=== PATIENT | female | born 1950 | race American Indian/Alaskan Native ===

== ENCOUNTER 2018-07-10 19:47 | Emergency (ER) | payer BC ==
[2018-07-10] MEDS ORDERED: Labetalol 25mg/5ml Syringe IVP STA (20:14)
--- NOTE | 2018-07-10 20:24 | C.PDOC ---
History Of Present Illness 68 y/o female, with history of hypertension, states that she did not take her medications today. Patient was here at the hospital visiting family when she started to have head pressure and dizziness. Blood pressure was found to be e levated. She denies chest pain or SOB. Patient states that shes been under a lot of stress as of late. Time Seen by Provider: 07/10/18 20:03 Chief Complaint (Nursing): High Blood Pressure History Per: Patient History/Exam Limitations: no limitations Onset/Duration Of Symptoms: Hrs Current Symptoms Are (Timing): Still Present Past Medical History Reviewed: Historical Data, Nursing Documentation, Vital Signs Vital Signs: Last Vital Signs Temp 98.5 F 07/10/18 19:57 Pulse 67 07/10/18 19:57 Resp 20 07/10/18 19:57 BP 227/116 H 07/10/18 19:57 Pulse Ox 95 07/10/18 19:57 - Medical History PMH: HTN - [facility] Procedures ESOPHAGOGASTRODUODENOSCOPY [EGD] W/CLOSED BIOPSY (06/20/98) Family History: States: No Known Family Hx - Social History Hx Alcohol Use: No Hx Substance Use: No - Immunization History Hx Tetanus Toxoid Vaccination: Yes Hx Influenza Vaccination: Yes Hx Pneumococcal Vaccination: Yes Review Of Systems Except As Marked, All Systems Reviewed And Found Negative. Neurological: Positive for: Dizziness, Other (Head pressure) Physical Exam - Physical Exam Appears: Non-toxic, No Acute Distress Skin: Normal Color, Warm, Dry Head: Atraumatic, Normacephalic Eye(s): bilateral: Normal Inspection, PERRL Oral Mucosa: Moist Neck: Supple Chest: Symmetrical Cardiovascular: Rhythm Regular, No Murmur Respiratory: Normal Breath Sounds, No Rales, No Rhonchi, No Wheezing Gastrointestinal/Abdominal: Soft, No Tenderness Extremity: Bilateral: Atraumatic, Normal Color And Temperature, Normal ROM Neurological/Psych: Oriented x3, Normal Speech ED Course And Treatment - Laboratory Results Result Diagrams: 07/10/18 20:39 07/10/18 20:39 ECG: Interpreted By Me, Viewed By Me ECG Rhythm: Sinus Bradycardia Interpretation Of ECG: Normal intervals. Normal axis. LVH. No ST/T wave abnormalities. Rate From EC O2 Sat by Pulse Oximetry: 95 (RA) Pulse Ox Interpretation: Normal - CT Scan/US Head CT Other Rad Studies (CT/US): Read By Radiologist, Radiology Report Reviewed CT/US Interpretation: FINDINGS: BRAIN. Chronic periventricular and subcortical microvascular disease is seen. VENTRICLES: There is generalized parenchymal atrophy noted as demonstrated by symmetrical dilatation of ventricles and sulci. ORBITS: The orbits are unremarkable. SINUSES AND MASTOIDS: The paranasal sinuses and mastoid air cells are clear. BONES: No fracture. SOFT TISSUES: Unremarkable. MISCELLANEOUS: No acute intracranial pathology. IMPRESSION: 1. There is generalized parenchymal atrophy noted as demonstrated by symmetrical dilatation of ventricles and sulci. 2. Chronic periventricular and subcortical microvascular disease is seen. 3. No acute intracranial pathology. Medical Decision Making Medical Decision Making: Impression: High Blood Pressure Plan: --Head CT --EKG --Labs --Chest XR --Trandate 20 mg IV patient states improvement. repeat bp lowered. Patient would like to go home. Will discharge home to follow up accordingly. Disposition Counseled Patient/Family Regarding: Studies Performed, Diagnosis, Need For Followup - Disposition Referrals: Mehran Larson MD [Staff Provider] - Disposition: HOME/ ROUTINE Disposition Time: 22:43 Condition: STABLE Additional Instructions: follow up with your doctor within 2 days call to make an appointment continue your home medications return to ER if symptoms worsens or progress Instructions: High Blood Pressure in Adults Forms: [facility] (German), General Discharge Instructions - Clinical Impression Clinical Impression: Hypertension - Scribe Statement The provider has reviewed the documentation as recorded by the Gary Gutierrez Provider Attestation: All medical record entries made by the Mpibcori were at my direction and personally dictated by me. I have reviewed the chart and agree that the record accurately reflects my personal performance of the history, physical exam, [facility] decision making, and the department course for this patient. I have also personally directed, reviewed, and agree with the discharge instructions and disposition.
[2018-07-10] MEDS ORDERED: Labetalol 5mg/ml (4ml) ONE ×3 (20:27→23:14)
[2018-07-10 20:42] LABS: BASO # 0.1 K/uL (0.0-0.2); BASO % 1.4 % (0.0-2.0); EOS # 0.1 K/uL (0.0-0.7); EOS % 1.2 % (0.0-4.0); HEMOGLOBIN 11.6 g/dL (11.0-16.0); LYMPH # 1.4 K/uL (1.0-4.3); MEAN CELL VOLUME 89.1 fL (81.0-99.0); MEAN CORPUSCULAR HEMOGLOBIN 29.1 pg (27.0-31.0); MEAN CORPUSCULAR HGB CONC 32.7 g/dL (33.0-37.0); MEAN PLATELET VOLUME 11.6 fL (7.2-11.7); MONO # 0.7 K/uL (0.0-0.8); MONO % 13.4 % (0.0-10.0); NEUT # 3.2 K/uL (1.8-7.0); RBC 3.99 Mil/uL (3.80-5.20); RED CELL DISTRIBUTION WIDTH 14.3 % (11.5-14.5); WHITE BLOOD COUNT 5.4 K/uL (4.8-10.8)
[2018-07-10 20:55] LABS: ALB/GLOB RATIO 1.2 (1.0-2.1); ALBUMIN 4.5 g/dL (3.5-5.0); BLOOD UREA NITROGEN 33 mg/dL (7-17); CALCIUM 9.4 mg/dl (8.6-10.4); GFR NON-AFRICAN AMERICAN 28
[2018-07-10 21:06] LABS: ALT/SGPT 28 U/L (9-52); AST/SGOT 40 U/L (14-36)
[2018-07-10 21:07] LABS: B-TYPE NATRIURETIC PEPTIDE 531 pg/mL (0-900)
[2018-07-10] MEDS ORDERED: Labetalol 5 mg/ml Inj 20ML IV STA ×2 (21:36→22:37)
[2018-07-10 23:31] VITALS: O2SAT 100
[2018-07-10 23:56] VITALS: BP 165/94; PULSE 74; RESP 20; TEMP 98.1
--- NOTE | 2018-07-11 07:32 | CT ---
Date of service: 07/10/2018 PROCEDURE: CT HEAD WITHOUT CONTRAST. HISTORY: dizziness COMPARISON: None available. TECHNIQUE: Axial computed tomography images were obtained through the head/brain without intravenous contrast. Radiation dose: Total exam DLP = 1077.66 mGy-cm. This CT exam was performed using one or more of the following dose reduction techniques: Automated exposure control, adjustment of the mA and/or kV according to patient size, and/or use of iterative reconstruction technique. FINDINGS: HEMORRHAGE: No intracranial hemorrhage. BRAIN: No mass effect or edema. Scattered focal lucencies in the subcortical and periventricular white matter suggestive for severe chronic microvascular ischemic change. Generalized parenchymal atrophy. VENTRICLES: Unremarkable. No hydrocephalus. CALVARIUM: Unremarkable. PARANASAL SINUSES: Unremarkable as visualized. No significant inflammatory changes. MASTOID AIR CELLS: Unremarkable as visualized. No inflammatory changes. OTHER FINDINGS: None. IMPRESSION: Generalized parenchymal atrophy. Severe chronic microvascular ischemic change. If symptoms persists, consider correlation with MRI. A preliminary report was generated at 9:06 p.m. on 07/10/[address] Vikram Burleson from [employer].
--- NOTE | 2018-07-11 08:14 | RAD ---
Chest x-ray single frontal view HISTORY: Shortness of breath. COMPARISON: None. FINDINGS: No focal infiltrate or effusion. Heart size within normal limits. Calcific tendinopathy of the left proximal humerus. IMPRESSION: No focal infiltrate or effusion.
--- NOTE | 2018-07-12 20:07 | CARD ---
APPROVED REPORT Date of service: 07/10/2018 EKG Measurement Heart [id number] [id number] <Conclusion> Sinus bradycardia with sinus arrhythmia Possible Left atrial enlargement Left ventricular hypertrophy Abnormal ECG
== END 2018-07-11 00:26 | disposition home or self-care (01) ==
LOC: C.ER 19:47
DX: I10 Essential (primary) hypertension (principal)

== ENCOUNTER 2018-08-25 21:18 | Inpatient (IN) | payer BC ==
[2018-08-25 21:37] VITALS: BMI 30.2
--- NOTE | 2018-08-25 21:40 | C.PDOC ---
History Of Present Illness 68 year old female presents with loss of vision of the left eye, medial aspect, since yesterday. Denies headache, nausea, or vomiting. Chief Complaint (Nursing): Weakness/Neurological Deficit History Per: Patient History/Exam Limitations: no limitations Onset/Duration Of Symptoms: Days (Yesterday) Current Symptoms Are (Timing): Still Present Seizure Or Post-ictal Symptoms: None - Symptoms Of CVA Associated Symptoms: New Vision Deficit(Left). denies: Impaired Speech, Seizure Activity, New Vision Deficit(Right), Decreased Ability To Walk, New Confusion Character Of Deficits: Left: Vision Problems (Medial aspect vision loss) Past Medical History Reviewed: Historical Data, Nursing Documentation, Vital Signs - Medical History PMH: HTN - [facility] Procedures ESOPHAGOGASTRODUODENOSCOPY [EGD] W/CLOSED BIOPSY (06/20/98) Family History: States: No Known Family Hx - Social History Hx Alcohol Use: No Hx Substance Use: No - Immunization History Hx Tetanus Toxoid Vaccination: Yes Hx Influenza Vaccination: Yes Hx Pneumococcal Vaccination: Yes Review Of Systems Constitutional: Negative for: Fever, Chills Eyes: Positive for: Vision Change (Left eye vision loss) ENT: Negative for: Nose Discharge, Nose Congestion Cardiovascular: Negative for: Chest Pain, Palpitations Respiratory: Negative for: Cough, Shortness of Breath Gastrointestinal: Negative for: Nausea, Vomiting, Diarrhea Genitourinary: Negative for: Dysuria, Hematuria Musculoskeletal: Negative for: Back Pain Skin: Negative for: Rash Neurological: Negative for: Headache, Dizziness Physical Exam - Physical Exam Appears: Non-toxic Skin: Normal Color, Warm, Dry Head: Atraumatic, Normacephalic Eye(s): bilateral: PERRL, EOMI Ear(s): Bilateral: Normal Oral Mucosa: Moist Neck: Normal, Supple Chest: Symmetrical, No Tenderness Cardiovascular: Rhythm Regular Respiratory: Normal Breath Sounds, No Rales, No Rhonchi, No Wheezing Gastrointestinal/Abdominal: Soft, No Tenderness Extremity: Normal ROM (x4) Neurological/Psych: Oriented x3, Normal Speech ED Course And Treatment - Laboratory Results Result Diagrams: 08/25/18 21:43 08/25/18 21:43 ECG: Interpreted By Me, Viewed By Me ECG Rhythm: Sinus Rhythm ECG Interpretation: Abnormal Interpretation Of ECG: NSR, LVH, no acute changes. Rate From EC Interpretation Of Abnormal: NSR,LVH, abnormal tracings. Progress Note: Code stroke activated. Blood work, CXR, and CT head ordered. Dr. Delacruz called and notified. NIHSS Stroke Scale 2 - Date/Time Evaluation Performed Date Performed: 08/25/18 (started yesterday afternoon) Time Performed: 21:39 When Was NIHSS Performed: Baseline - How Severe is the Stroke Level of Consciousness: 0=Alert LOC to Questions: 0=Both comments correct LOC to commands: 0=Obeys both correctly Best Gaze: 0=Normal Visual: 1=Partial hemianopia Facial: 0=Normal Motor Arm - Left: 0=No drift Motor Arm - Right: 0=No drift Motor Leg - Left: 0=No drift Motor Leg - Right: 0=No drift Limb Ataxia: 0=Absent Sensory: 0=Normal Best Language: 0=No aphasia Dysarthia: 0=Normal articulation Extinction & Inattention (Neglect): 0=Normal, no object Score: 1 rTPA Inclusion/Exclusion - Refusal of Treatment Patient Refused Treatment: No - Inclusion Criteria for Altepase Patient is 18 years or Older: Yes The Clinical Diagnosis of Ischemic Stroke That is Causing a Potentially Disabl ing Neurological Deficit: Yes Time of Onset is Well Established to be Less Than 270 Minute Before Treatment Would Begin: No Risk/Benefit Discussed With Patient/Family Member Present: No - Exclusion Criteria for Altepase Uncontrolled Hypertension at Time of Treatment (Systolic BP above 185 or Diastolic BP above 110 mmHg): No Active Internal Bleeding: No Known Bleeding Diathesis Including but Not Limited to: Platelets Below 100,000/mm,PTT Above 40 sec After Heparin Use, Current Use of Oral Anitcoagulant With INR Greater Than 1.7 or PT Greater Than 15 secs: No Evidence of an Intracranial Hemorrhage: No Evidence of Major Acute Infarct With Signs Greater Than 1/3 MCA Territory: No Suspicion of Subarachnoid Hemorrhage on Pretreatment Evaluation Even if CT Head Negative For Hemorrhage: No - Warning to TPA With Conditions Following Conditions Weighed Against Anticipated Benefit: No Condition: Stroke Serevity Too Mild (left eye medial hemianopsia, no weakness) Disposition Discussed With DrNissa: Gera Larson Doctor Will See Patient In The: Hospital Counseled Patient/Family Regarding: Diagnosis - Disposition Disposition: HOSPITALIZED Disposition Time: 22:56 Condition: STABLE Forms: [facility] [employer] [facility] (Vietnamese) - POA Present On Arrival: None - Clinical Impression Clinical Impression: Amaurosis fugax of left eye - Scribe Statement The provider has reviewed the documentation as recorded by the Scribe Pablo Becerra All medical record entries made by the Scribe were at my direction and personally dictated by me. I have reviewed the chart and agree that the record accurately reflects my personal performance of the history, physical exam, medical decision making, and the department course for this patient. I have also personally directed, reviewed, and agree with the discharge instructions and disposition.
[2018-08-25 21:48] LABS: BASO % 0.6 % (0.0-2.0); EOS # 0.2 K/uL (0.0-0.7); EOS % 4.6 % (0.0-4.0); HEMOGLOBIN 11.8 g/dL (11.0-16.0); LYMPH # 1.2 K/uL (1.0-4.3); MEAN CELL VOLUME 88.8 fL (81.0-99.0); MEAN CORPUSCULAR HEMOGLOBIN 28.8 pg (27.0-31.0); MEAN CORPUSCULAR HGB CONC 32.4 g/dL (33.0-37.0); MEAN PLATELET VOLUME 11.7 fL (7.2-11.7); MONO # 0.6 K/uL (0.0-0.8); MONO % 14.1 % (0.0-10.0); NEUT # 2.3 K/uL (1.8-7.0); NEUT % 52.7 % (50.0-75.0); NRBC % 0.1 % (0.0-2.0); RBC 4.1 Mil/uL (3.80-5.20); RED CELL DISTRIBUTION WIDTH 14.1 % (11.5-14.5); WHITE BLOOD COUNT 4.3 K/uL (4.8-10.8)
[2018-08-25 21:57] LABS: INR 1.1; PROTHROMBIN TIME 12.4 SECONDS (9.7-12.2)
[2018-08-25] MEDS ORDERED: Iodixanol 320 MG/ML 100 ML BOTTLE IV ONE (22:00)
[2018-08-25 22:01] LABS: ALB/GLOB RATIO 1.1 (1.0-2.1); ALBUMIN 4.2 g/dL (3.5-5.0); CALCIUM 9.7 mg/dl (8.6-10.4)
[2018-08-25 22:13] LABS: TROPONIN I 0.03 ng/mL (0.00-0.120)
[2018-08-26] MEDS ORDERED: Labetalol 5 mg/ml Inj 20ML IV STA (01:35)
[2018-08-26] MEDS ORDERED: Labetalol 5mg/ml (4ml) ONE (01:42)
--- NOTE | 2018-08-26 09:01 | CT ---
Date of service: 08/25/2018 PROCEDURE: CT HEAD WITHOUT CONTRAST. HISTORY: Code Stroke COMPARISON: 08/25/2018 TECHNIQUE: Axial computed tomography images were obtained through the head/brain without intravenous contrast. Radiation dose: Total exam DLP = 1091.8 mGy-cm. This CT exam was performed using one or more of the following dose reduction techniques: Automated exposure control, adjustment of the mA and/or kV according to patient size, and/or use of iterative reconstruction technique. FINDINGS: HEMORRHAGE: No intracranial hemorrhage. BRAIN: No mass effect or edema. Scattered focal lucencies in the subcortical and periventricular white matter suggestive for chronic microvascular ischemic change. Diffuse generalized parenchymal atrophy. VENTRICLES: Unremarkable. No hydrocephalus. CALVARIUM: Unremarkable. PARANASAL SINUSES: Unremarkable as visualized. No significant inflammatory changes. MASTOID AIR CELLS: Unremarkable as visualized. No inflammatory changes. OTHER FINDINGS: Incidentally noted is some fullness in the intrasellar cistern. Clinical correlation. IMPRESSION: No acute intracranial abnormality. Chronic microvascular ischemic change. Diffuse generalized parenchymal atrophy. Additional findings as above. If symptoms persist or there is persistent concern for acute ischemic change, consider correlation with MRI. A preliminary report was generated at 9:56 p.m. on 08/25/[address] Vikram Burleson from [employer].
--- NOTE | 2018-08-26 10:16 | CP.PCM.CON ---
History of Present Illness - History of Present Illness History of Present Illness: I was asked to evaluate patient by Dr Larson Patient seen 08/26/18 1010 Patient is a 68 year old female with HTN who presents with headache uncontrolled blood pressure and CVA. The patient was at home when she developed progressive headache arm weakness and decreased viusal acuity of the left eye. Symptoms were progressive. In the ER systolic BP was >200, and was given various medications. The patient currently still has vision loss of the left eye. Review of Systems - Constitutional Constitutional: absent: As Per HPI, Anorexia, Chills, Daytime Sleepiness, Excessive Sweating, Fatigue, Fever, Frequent Falls, Headache, Increased Appetite, Lethargy, Malaise, Night Sweats, Snoring, Sleep Apnea, Weight Gain, Weight Loss, Weakness, Other - EENT Eyes: absent: As Per HPI, Blind Spots, Blurred Vision, Change in Vision, De creased Night Vision, Diplopia, Discharge, Dry Eye, Exophthalmos, Floaters, Irritation, Itchy Eyes, Loss of Peripheral Vision, Pain, Photophobia, Requires Corrective Lenses, Sees Flashes, Spots in Vision, Tunnel Vision, Other Visual Disturbances, Loss of Vision, Other Ears: absent: As Per HPI, Decreased Hearing, Ear Discharge, Ear Pain, Tinnitus, Abnormal Hearing, Disequilibrium, Dizziness, Other Nose/Mouth/Throat: absent: As Per HPI, Epistaxis, Nasal Congestion, Nasal Discharge, Nasal Obstruction, Nasal Trauma, Nose Pain, Post Nasal Drip, Sinus Pain, Sinus Pressure, Bleeding Gums, Change in Voice, Dental Pain, Dry Mouth, Dysphagia, Halitosis, Hoarsness, Lip Swelling, Mouth Lesions, Mouth Pain, Odynophagia, Sore Throat, Throat Swelling, Tongue Swelling, Facial Pain, Neck Pain, Neck Mass, Other - Cardiovascular Cardiovascular: absent: As Per HPI, Acrocyanosis, Chest Pain, Chest Pain at Rest, Chest Pain with Activity, Claudication, Diaphoresis, Dyspnea, Dyspnea on Exertion, Edema, Irregular Heart Rhythm, Pain Radiating to Arm/Neck/Jaw, Leg Edema, Leg Ulcers, Lightheadedness, Orthopnea, Palpitations, Paroxysmal Nocturnal Dyspnea, Pedal Edema, Radiating Pain, Rapid Heart Rate, Slow Heart Rate, Syncope, Other - Respiratory Respiratory: absent: As Per HPI, Cough, Dyspnea, Hemoptysis, Dyspnea on Exertion, Wheezing, Snoring, Stridor, Pain on Inspiration, Chest Congestion, Excessive Mucous Production, Change in Mucous Color, Pain with Coughing, Other - Gastrointestinal Gastrointestinal: absent: As Per HPI, Abdominal Pain, Belching, Bloating, Change in Bowel Habits, Change in Stool Character, Coffee Ground Emesis, Constipation, Cramping, Diarrhea, Dyspepsia, Dysphagia, Early Satiety, Excessive Flatus, Fecal Incontinence, Heartburn, Hematemesis, Hematochezia, Loose Stools, Melena, Nausea, Odynophagia, Temesmus, Vomiting, Other - Genitourinary Genitourinary: absent: As Per HPI, Change in Urinary Stream, Difficulty Urinating, Dysuria, Flank Pain, Hematuria, Pyuria, Nocturia, Urinary Incontinence, Urinary Frequency, Urinary Hesitance, Urinary Urgency, Voiding Freq/Small Amts, Freq UTI, Hx Renal/Bladder Calculi, Hx /Renal Surgery, Bladder Distension, Other - Musculoskeletal Musculoskeletal: absent: As Per HPI, Abnormal Gait, Arthralgias, Atrophy, Back Pain, Deformity, Joint Swelling, Limited Range of Motion, Loss of Height, Muscle Cramps, Muscle Weakness, Myalgias, Neck Pain, Numbness, Radiating Pain into Limb, Stiffness, Tingling, Other - Integumentary Integumentary: absent: As Per HPI, Acne, Alopecia, Bleeding Lesions, Change in Hair, Change in Nails, Change in Pigmentation, Changing Lesions, Dry Skin, Erythema, Furuncle, Hirsutism, Lesions, New Lesions, Non-Healing Lesions, Amanda tosensitivity, Pruritus, Rash, Skin Pain, Skin Ulcer, Sores, Striae, Swelling, Unusual Bruising, Wounds, Jaundice, Other - Neurological Neurological: Loss of Vision - Psychiatric Psychiatric: absent: As Per HPI, Abnormal Sleep Pattern, Anhedonia, Anxiety, Auditory Hallucinations, Behavioral Changes, Change in Appetite, Change in Libido, Confusion, Depression, Difficulty Concentrating, Hallucinations, Homicidal Ideation, Hopelessness, Irritability, Memory Loss, Mood Swings, Panic Attacks, Paranoia, Suicidal Ideation, Visual Hallucinations, Tactile Hallucinations, Other - Endocrine Endocrine: absent: As Per HPI, Change in Body Appearance, Change in Libido, Cold Intolorance, Deepening of Voice, Excessive Sweating, Fatigue, Flushing, Heat Intolorance, Increase in Ring/Shoe/Hat Size, Palpitations, Polydipsia, Polyphagia, Polyuria, Other - Hematologic/Lymphatic Hematologic: absent: As Per HPI, Easy Bleeding, Easy Bruising, Lymphadenopathy, Other Past Patient History - Past Medical History & Family History Past Medical History?: Yes - Past Social History Smoking Status: Never Smoked - CARDIAC Hx Hypertension: Yes - MUSCULOSKELETAL/RHEUMATOLOGICAL Hx Falls: No - PSYCHIATRIC Hx Substance Use: No - SURGICAL HISTORY Hx Surgeries: Yes Hx Hysterectomy: Yes - ANESTHESIA Hx Anesthesia: Yes Hx Anesthesia Reactions: No Hx Malignant Hyperthermia: No Has any member of the family had a problem w/ anesthesia?: No Meds Allergies/Adverse Reactions: Allergies Allergy/AdvReac Type Severity Reaction Status Date / Time peanut Allergy Verified 08/25/18 21:37 Penicillins Allergy Verified 08/25/18 21:37 chocolate Allergy Uncoded 07/10/18 20:04 - Medications Medications: Current Medications Amlodipine Besylate (Norvasc) [address] [facility] Clonidine HCl (Catapres) 0.1 mg PO BID [facility] Clopidogrel Bisulfate (Plavix) 75 mg PO DAILY [facility] Heparin Sodium (Porcine) (Heparin) 5,000 units SC Q8 [facility] Last Admin: 08/26/18 06:56 Dose: 5,000 units Hydrochlorothiazide (Microzide) 12.5 mg PO DAILY [facility] Losartan Potassium (Cozaar) 100 mg PO DAILY [facility] Physical Exam - Constitutional Appears: Non-toxic - Head Exam Head Exam: NORMAL INSPECTION - Eye Exam Eye Exam: Normal appearance - ENT Exam ENT Exam: Mucous Membranes Dry, Mucous Membranes Moist, Normal Exam - Neck Exam Neck exam: Positive for: Full Rom - Respiratory Exam Respiratory Exam: NORMAL BREATHING PATTERN - Cardiovascular Exam Cardiovascular Exam: REGULAR RHYTHM - GI/Abdominal Exam GI & Abdominal Exam: Diminished Bowel Sounds, Normal Bowel Sounds - Rectal Exam Rectal Exam: Deferred - Extremities Exam Extremities exam: Positive for: pedal edema - Back Exam Back exam: NORMAL INSPECTION - Neurological Exam Neurological exam: Alert, Oriented x3 - Psychiatric Exam Psychiatric exam: Normal Affect - Skin Skin Exam: Normal Color Results - Vital Signs Recent Vital Signs: Last Vital Signs Temp 98.5 F 08/26/18 07:00 Pulse 60 08/26/18 07:00 Resp 20 08/26/18 07:00 BP 167/90 H 08/26/18 07:00 Pulse Ox 96 08/26/18 07:00 - Labs Result Diagrams: 08/25/18 21:43 08/25/18 21:43 Labs: Laboratory Results - last 24 hr 08/25/18 08/25/18 08/25/18 21:34 21:43 21:43 WBC 4.3 L RBC 4.10 Hgb 11.8 Hct 36.3 MCV 88.8 MCH 28.8 MCHC 32.4 L RDW 14.1 Plt Count 105 L MPV 11.7 Neut % (Auto) 52.7 Lymph % (Auto) 28.0 Quay % (Auto) 14.1 H Eos % (Auto) 4.6 H Baso % (Auto) 0.6 Neut # (Auto) 2.3 Lymph # (Auto) 1.2 Quay # (Auto) 0.6 Eos # (Auto) 0.2 Baso # (Auto) 0.0 PT 12.4 H INR 1.1 APTT 28 Sodium Potassium Chloride Carbon Dioxide Anion Gap BUN Creatinine Est GFR ( Amer) Est GFR (Non-Af Amer) POC Glucose (mg/dL) 95 Random Glucose Hemoglobin A1c Calcium Total Bilirubin AST ALT Alkaline Phosphatase Troponin I Total Protein Albumin Globulin Albumin/Globulin Ratio Triglycerides Cholesterol LDL Cholesterol Direct HDL Cholesterol Blood Type Antibody Screen 08/25/18 08/25/18 08/25/18 21:43 21:43 21:43 WBC RBC Hgb Hct MCV MCH MCHC RDW Plt Count MPV Neut % (Auto) Lymph % (Auto) Quay % (Auto) Eos % (Auto) Baso % (Auto) Neut # (Auto) Lymph # (Auto) Quay # (Auto) Eos # (Auto) Baso # (Auto) PT INR APTT Sodium 140 Potassium 4.2 Chloride 103 Carbon Dioxide 28 Anion Gap 14 BUN 28 H Creatinine 1.9 H Est GFR ( Amer) 32 Est GFR (Non-Af Amer) 26 POC Glucose (mg/dL) Random Glucose 93 Hemoglobin A1c 5.7 Calcium 9.7 Total Bilirubin 1.2 AST 34 ALT 11 Alkaline Phosphatase 89 Troponin I 0.0300 Total Protein 7.8 Albumin 4.2 Globulin 3.7 Albumin/Globulin Ratio 1.1 Triglycerides 114 Cholesterol 145 LDL Cholesterol Direct 62 HDL Cholesterol 55 Blood Type O POSITIVE Antibody Screen Negative 08/26/18 06:15 WBC RBC Hgb Hct MCV MCH MCHC RDW Plt Count MPV Neut % (Auto) Lymph % (Auto) Quay % (Auto) Eos % (Auto) Baso % (Auto) Neut # (Auto) Lymph # (Auto) Quay # (Auto) Eos # (Auto) Baso # (Auto) PT INR APTT Sodium Potassium Chloride Carbon Dioxide Anion Gap BUN Creatinine Est GFR ( Amer) Est GFR (Non-Af Amer) POC Glucose (mg/dL) 87 Random Glucose Hemoglobin A1c Calcium Total Bilirubin AST ALT Alkaline Phosphatase Troponin I Total Protein Albumin Globulin Albumin/Globulin Ratio Triglycerides Cholesterol LDL Cholesterol Direct HDL Cholesterol Blood Type Antibody Screen - EKG Data EKG Interpreted by: Myself EKG shows normal: Sinus rhythm Assessment & Plan (1) Hypertension Assessment and Plan: will need improved blood pressure control. consider increasing malodipine. will check echocardiogram Status: Acute (2) Amaurosis fugax of left eye Assessment and Plan: neuro follow up Status: Acute
--- NOTE | 2018-08-26 10:31 | CP.PCM.CON ---
History of Present Illness - History of Present Illness History of Present Illness: Patient is a 68 year old female with HTN who presents with headache uncontrolled blood pressure and CVA. The patient was at home when she developed progressive headache arm weakness and decreased viusal acuity of the left eye. Symptoms were progressive. In the ER systolic BP was >200, and was given various medications. The patient currently still has vision loss of the left eye. Found to have elevated creatinine. No known CKD. HTN still poorly controlled Other hx- dyslipidemia Review of Systems - Constitutional Constitutional: Lethargy, Weakness - EENT Eyes: Blind Spots, Other Visual Disturbances Ears: absent: As Per HPI, Decreased Hearing, Ear Discharge, Ear Pain, Tinnitus, Abnormal Hearing, Disequilibrium, Dizziness, Other Nose/Mouth/Throat: absent: As Per HPI, Epistaxis, Nasal Congestion, Nasal Discharge, Nasal Obstruction, Nasal Trauma, Nose Pain, Post Nasal Drip, Sinus Pain, Sinus Pressure, Bleeding Gums, Change in Voice, Dental Pain, Dry Mouth, Dysphagia, Halitosis, Hoarsness, Lip Swelling, Mouth Lesions, Mouth Pain, Odynophagia, Sore Throat, Throat Swelling, Tongue Swelling, Facial Pain, Neck Pain, Neck Mass, Other - Cardiovascular Cardiovascular: Dyspnea on Exertion - Respiratory Respiratory: absent: As Per HPI, Cough, Dyspnea, Hemoptysis, Dyspnea on Exertion, Wheezing, Snoring, Stridor, Pain on Inspiration, Chest Congestion, Excessive Mucous Production, Change in Mucous Color, Pain with Coughing, Other - Gastrointestinal Gastrointestinal: Nausea, Vomiting - Genitourinary Genitourinary: absent: As Per HPI, Change in Urinary Stream, Difficulty Urinating, Dysuria, Flank Pain, Hematuria, Pyuria, Nocturia, Urinary Incontinence, Urinary Frequency, Urinary Hesitance, Urinary Urgency, Voiding Freq/Small Amts, Freq UTI, Hx Renal/Bladder Calculi, Hx /Renal Surgery, Bladder Distension, Other - Musculoskeletal Musculoskeletal: Muscle Cramps, Muscle Weakness, Myalgias - Integumentary Integumentary: absent: As Per HPI, Acne, Alopecia, Bleeding Lesions, Change in Hair, Change in Nails, Change in Pigmentation, Changing Lesions, Dry Skin, Erythema, Furuncle, Hirsutism, Lesions, New Lesions, Non-Healing Lesions, Photosensitivity, Pruritus, Rash, Skin Pain, Skin Ulcer, Sores, Striae, Swelling, Unusual Bruising, Wounds, Jaundice, Other - Neurological Neurological: As Per HPI Past Patient History - Past Medical History & Family History Past Medical History?: Yes Past Family History: Reviewed and not pertinent - Past Social History Smoking Status: Never Smoked Chewing Tobacco Use: No Cigar Use: No Alcohol: None Drugs: Denies - CARDIAC Hx Hypertension: Yes - MUSCULOSKELETAL/RHEUMATOLOGICAL Hx Falls: No - PSYCHIATRIC Hx Substance Use: No - SURGICAL HISTORY Hx Surgeries: Yes Hx Hysterectomy: Yes - ANESTHESIA Hx Anesthesia: Yes Hx Anesthesia Reactions: No Hx Malignant Hyperthermia: No Has any member of the family had a problem w/ anesthesia?: No Meds Allergies/Adverse Reactions: Allergies Allergy/AdvReac Type Severity Reaction Status Date / Time peanut Allergy Verified 08/25/18 21:37 Penicillins Allergy Verified 08/25/18 21:37 chocolate Allergy Uncoded 07/10/18 20:04 - Medications Medications: Current Medications Amlodipine Besylate (Norvasc) 5 mg PO [facility] Clonidine HCl (Catapres) 0.1 mg PO BID [facility] Clopidogrel Bisulfate (Plavix) 75 mg PO DAILY [facility] Heparin Sodium (Porcine) (Heparin) 5,000 units SC Q8 [facility] Last Admin: 08/26/18 06:56 Dose: 5,000 units Hydrochlorothiazide (Microzide) 12.5 mg PO DAILY [facility] Losartan Potassium (Cozaar) 100 mg PO DAILY [facility] Physical Exam - Constitutional Appears: No Acute Distress, Chronically Ill - Head Exam Head Exam: ATRAUMATIC, NORMAL INSPECTION - Eye Exam Eye Exam: Normal appearance - Neck Exam Neck exam: Positive for: Normal Inspection. Negative for: Tenderness - Respiratory Exam Respiratory Exam: Clear to Auscultation Bilateral, NORMAL BREATHING PATTERN - Cardiovascular Exam Cardiovascular Exam: REGULAR RHYTHM, +S1 - GI/Abdominal Exam GI & Abdominal Exam: Soft. absent: Tenderness - Extremities Exam Extremities exam: Positive for: normal inspection. Negative for: tenderness - Neurological Exam Neurological exam: Altered - Skin Skin Exam: Dry, Warm Results - Vital Signs Recent Vital Signs: Last Vital Signs Temp 98.5 F 08/26/18 07:00 Pulse 60 08/26/18 07:00 Resp 20 08/26/18 07:00 BP 167/90 H 08/26/18 07:00 Pulse Ox 96 08/26/18 07:00 - Labs Result Diagrams: 08/25/18 21:43 08/25/18 21:43 Labs: Laboratory Results - last 24 hr 08/25/18 08/25/18 08/25/18 21:34 21:43 21:43 WBC 4.3 L RBC 4.10 Hgb 11.8 Hct 36.3 MCV 88.8 MCH 28.8 MCHC 32.4 L RDW 14.1 Plt Count 105 L MPV 11.7 Neut % (Auto) 52.7 Lymph % (Auto) 28.0 [place] % (Auto) 14.1 H Eos % (Auto) 4.6 H Baso % (Auto) 0.6 Neut # (Auto) 2.3 Lymph # (Auto) 1.2 [place] # (Auto) 0.6 Eos # (Auto) 0.2 Baso # (Auto) 0.0 PT 12.4 H INR 1.1 APTT 28 Sodium Potassium Chloride Carbon Dioxide Anion Gap BUN Creatinine Est GFR ( Amer) Est GFR (Non-Af Amer) POC Glucose (mg/dL) 95 Random Glucose Hemoglobin A1c Calcium Total Bilirubin AST ALT Alkaline Phosphatase Troponin I Total Protein Albumin Globulin Albumin/Globulin Ratio Triglycerides Cholesterol LDL Cholesterol Direct HDL Cholesterol Blood Type Antibody Screen 08/25/18 08/25/18 08/25/18 21:43 21:43 21:43 WBC RBC Hgb Hct MCV MCH MCHC RDW Plt Count MPV Neut % (Auto) Lymph % (Auto) [place] % (Auto) Eos % (Auto) Baso % (Auto) Neut # (Auto) Lymph # (Auto) [place] # (Auto) Eos # (Auto) Baso # (Auto) PT INR APTT Sodium 140 Potassium 4.2 Chloride 103 Carbon Dioxide 28 Anion Gap 14 BUN 28 H Creatinine 1.9 H Est GFR ( Amer) 32 Est GFR (Non-Af Amer) 26 POC Glucose (mg/dL) Random Glucose 93 Hemoglobin A1c 5.7 Calcium 9.7 Total Bilirubin 1.2 AST 34 ALT 11 Alkaline Phosphatase 89 Troponin I 0.0300 Total Protein 7.8 Albumin 4.2 Globulin 3.7 Albumin/Globulin Ratio 1.1 Triglycerides 114 Cholesterol 145 LDL Cholesterol Direct 62 HDL Cholesterol 55 Blood Type O POSITIVE Antibody Screen Negative 08/26/18 06:15 WBC RBC Hgb Hct MCV MCH MCHC RDW Plt Count MPV Neut % (Auto) Lymph % (Auto) [place] % (Auto) Eos % (Auto) Baso % (Auto) Neut # (Auto) Lymph # (Auto) [place] # (Auto) Eos # (Auto) Baso # (Auto) PT INR APTT Sodium Potassium Chloride Carbon Dioxide Anion Gap BUN Creatinine Est GFR ( Amer) Est GFR (Non-Af Amer) POC Glucose (mg/dL) 87 Random Glucose Hemoglobin A1c Calcium Total Bilirubin AST ALT Alkaline Phosphatase Troponin I Total Protein Albumin Globulin Albumin/Globulin Ratio Triglycerides Cholesterol LDL Cholesterol Direct HDL Cholesterol Blood Type Antibody Screen Assessment & Plan (1) HAMLET (acute kidney injury) Status: Acute (2) Amaurosis fugax of left eye Status: Acute (3) Hypertension Status: Acute - Assessment and Plan (Free Text) Plan: increase HTN control evaluate for secondary causes of HTN neuro workup
--- NOTE | 2018-08-26 10:34 | CP.PCM.CON ---
<Mary Quintana P - Last Filed: 08/26/18 17:18> History of Present Illness - History of Present Illness History of Present Illness: Consult note for Dr. Delacruz. 68 year old female with PMHx of HTN and HLD presented to the ED yesterday for L eye visual loss, L arm weakness and numbness and severely elevated blood pressure. Patient states the visual loss and L arm weakness began yesterday, ho wever she did notice L eye blurriness the past 2 weeks. Associated symptoms include mild dizziness and mild frontal headache. Patient states she has been under a great amount of stress recently with her father in the hospital and has not been taking care of herself or complying with her BP meds. Patient denies slurred speech, confusion, nausea, vomiting, chest pain, shortness of breath. PMHx: HTN, HLD PSHx: hysterectomy Allergies: peanuts and seafood- throat closes, PCN-unknown rxn Family: father- HTN, COPD; mother-esophageal cancer; maternal grandmother-DM Social: Denies tobacco, alcohol and illicit drug use. Past Patient History - Past Medical History & Family History Past Medical History?: Yes - Past Social History Smoking Status: Never Smoked - CARDIAC Hx Hypertension: Yes - MUSCULOSKELETAL/RHEUMATOLOGICAL Hx Falls: No - PSYCHIATRIC Hx Substance Use: No - SURGICAL HISTORY Hx Surgeries: Yes Hx Hysterectomy: Yes - ANESTHESIA Hx Anesthesia: Yes Hx Anesthesia Reactions: No Hx Malignant Hyperthermia: No Has any member of the family had a problem w/ anesthesia?: No Meds Allergies/Adverse Reactions: Allergies Allergy/AdvReac Type Severity Reaction Status Date / Time peanut Allergy Verified 08/25/18 21:37 Penicillins Allergy Verified 08/25/18 21:37 chocolate Allergy Uncoded 07/10/18 20:04 - Medications Medications: Current Medications Amlodipine Besylate (Norvasc) 5 mg PO HS [facility] Clonidine HCl (Catapres) 0.1 mg PO BID [facility] Clopidogrel Bisulfate (Plavix) 75 mg PO DAILY [facility] Heparin Sodium (Porcine) (Heparin) 5,000 units SC Q8 [facility] Last Admin: 08/26/18 06:56 Dose: 5,000 units Hydrochlorothiazide (Microzide) 12.5 mg PO DAILY [facility] Losartan Potassium (Cozaar) 100 mg PO DAILY [facility] Physical Exam - Constitutional Appears: Non-toxic, No Acute Distress - Head Exam Head Exam: ATRAUMATIC, NORMOCEPHALIC - Eye Exam Eye Exam: EOMI, PERRL Additional comments: Tunnel vision to L eye, no visual loss to R eye. PERRLA. - Neck Exam Neck exam: Positive for: Normal Inspection - Respiratory Exam Respiratory Exam: NORMAL BREATHING PATTERN. absent: Respiratory Distress - Extremities Exam Extremities exam: Positive for: normal inspection Additional comments: Decreased strength to LUE - Neurological Exam Neurological exam: Alert, Oriented x3 Additional comments: Tunnel vision to L eye, no visual loss to R eye. PERRLA. No facial asymmetry. Muscle strength 4/5 LUE, 5/5 LLE, 5/5 RUE and RLE. Decreased sensation to V1 distribution of trigeminal nerve on the L, decreased sensation to LUE, otherwise sensation intact. No ataxia. - Psychiatric Exam Psychiatric exam: Normal Affect, Normal Mood - Skin Skin Exam: Dry, Intact, Normal Color, Warm Results - Vital Signs Recent Vital Signs: Last Vital Signs Temp 98.5 F 08/26/18 07:00 Pulse 60 08/26/18 07:00 Resp 20 08/26/18 07:00 BP 167/90 H 08/26/18 07:00 Pulse Ox 96 08/26/18 07:00 - Labs Result Diagrams: 08/25/18 21:43 08/25/18 21:43 Labs: Laboratory Results - last 24 hr 08/25/18 08/25/18 08/25/18 21:34 21:43 21:43 WBC 4.3 L RBC 4.10 Hgb 11.8 Hct 36.3 MCV 88.8 MCH 28.8 MCHC 32.4 L RDW 14.1 Plt Count 105 L MPV 11.7 Neut % (Auto) 52.7 Lymph % (Auto) 28.0 [place] % (Auto) 14.1 H Eos % (Auto) 4.6 H Baso % (Auto) 0.6 Neut # (Auto) 2.3 Lymph # (Auto) 1.2 [place] # (Auto) 0.6 Eos # (Auto) 0.2 Baso # (Auto) 0.0 PT 12.4 H INR 1.1 APTT 28 Sodium Potassium Chloride Carbon Dioxide Anion Gap BUN Creatinine Est GFR ( Amer) Est GFR (Non-Af Amer) POC Glucose (mg/dL) 95 Random Glucose Hemoglobin A1c Calcium Total Bilirubin AST ALT Alkaline Phosphatase Troponin I Total Protein Albumin Globulin Albumin/Globulin Ratio Triglycerides Cholesterol LDL Cholesterol Direct HDL Cholesterol Blood Type Antibody Screen 08/25/18 08/25/18 08/25/18 21:43 21:43 21:43 WBC RBC Hgb Hct MCV MCH MCHC RDW Plt Count MPV Neut % (Auto) Lymph % (Auto) [place] % (Auto) Eos % (Auto) Baso % (Auto) Neut # (Auto) Lymph # (Auto) [place] # (Auto) Eos # (Auto) Baso # (Auto) PT INR APTT Sodium 140 Potassium 4.2 Chloride 103 Carbon Dioxide 28 Anion Gap 14 BUN 28 H Creatinine 1.9 H Est GFR ( Amer) 32 Est GFR (Non-Af Amer) 26 POC Glucose (mg/dL) Random Glucose 93 Hemoglobin A1c 5.7 Calcium 9.7 Total Bilirubin 1.2 AST 34 ALT 11 Alkaline Phosphatase 89 Troponin I 0.0300 Total Protein 7.8 Albumin 4.2 Globulin 3.7 Albumin/Globulin Ratio 1.1 Triglycerides 114 Cholesterol 145 LDL Cholesterol Direct 62 HDL Cholesterol 55 Blood Type O POSITIVE Antibody Screen Negative 08/26/18 06:15 WBC RBC Hgb Hct MCV MCH MCHC RDW Plt Count MPV Neut % (Auto) Lymph % (Auto) [place] % (Auto) Eos % (Auto) Baso % (Auto) Neut # (Auto) Lymph # (Auto) [place] # (Auto) Eos # (Auto) Baso # (Auto) PT INR APTT Sodium Potassium Chloride Carbon Dioxide Anion Gap BUN Creatinine Est GFR ( Amer) Est GFR (Non-Af Amer) POC Glucose (mg/dL) 87 Random Glucose Hemoglobin A1c Calcium Total Bilirubin AST ALT Alkaline Phosphatase Troponin I Total Protein Albumin Globulin Albumin/Globulin Ratio Triglycerides Cholesterol LDL Cholesterol Direct HDL Cholesterol Blood Type Antibody Screen Assessment & Plan - Assessment and Plan (Free Text) Plan: CT Head-Generalized parenchymal atrophy. Severe chronic periventricular microvascular disease seen. No acute intracranial abnormality. CTA head/neck- Unremarkable MRI brain-Severe chronic microangiopathic changes and mild age related global parenchymal volume loss. 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 -Strict control of blood pressure -Start aspirin 81mg PO daily Discussed with Dr. Jayme Quintana, PGY-1 <Tato Delacruz - Last Filed: 09/06/18 16:08> Meds - Medications Medications: Current Medications Albuterol/Ipratropium (Duoneb 3 Mg/0.5 Mg (3 Ml) Ud) 3 ml INH RQ6 [facility] Last Admin: 09/06/18 15:08 Dose: 3 ml Alprazolam (Xanax) 0.25 mg PO BID [facility] Stop: 09/08/18 10:01 Last Admin: 09/06/18 10:17 Dose: Not Given Amlodipine Besylate (Norvasc) 10 mg PO DAILY [facility] Last Admin: 09/06/18 10:18 Dose: 10 mg Aspirin (Aspirin Chewable) 81 mg PO DAILY [facility] Last Admin: 09/06/18 10:20 Dose: 81 mg Clonidine HCl (Catapres) 0.1 mg PO BID [facility] Last Admin: 09/06/18 10:26 Dose: 0.1 mg Clopidogrel Bisulfate (Plavix) 75 mg PO DAILY [facility] Last Admin: 09/06/18 10:18 Dose: 75 mg Famotidine (Pepcid) 20 mg PO DAILY [facility] Last Admin: 09/06/18 10:22 Dose: Not Given Fluticasone/Vilanterol (Breo Ellipta 200-25 Mcg Inh) 1 puff INH RQD [facility] Lidocaine (Lidoderm) 1 ea TD DAILY [facility] Last Admin: 09/06/18 10:18 Dose: 1 ea Montelukast Sodium (Singulair) 10 mg PO HS [facility] Last Admin: 09/05/18 21:38 Dose: 10 mg Tramadol HCl (Ultram) 50 mg PO TID PRN PRN Reason: Pain, moderate (4-7) Last Admin: 09/06/18 10:20 Dose: 50 mg Results - Vital Signs Recent Vital Signs: Last Vital Signs Temp 97.8 F 09/06/18 07:00 Pulse 70 09/06/18 07:00 Resp 20 09/06/18 07:00 BP 128/80 09/06/18 07:00 Pulse Ox 100 09/06/18 07:00 - Labs Result Diagrams: 09/06/18 11:22 09/06/18 11:22 Labs: Laboratory Results - last 24 hr 09/03/18 09/03/18 09/06/18 06:47 11:03 11:22 WBC 4.8 RBC 3.70 L Hgb 11.0 Hct 33.4 L MCV 90.1 MCH 29.8 MCHC 33.0 RDW 14.2 Plt Count 128 L D MPV 12.0 H Neut % (Auto) 73.1 Lymph % (Auto) 13.7 L [place] % (Auto) 8.2 Eos % (Auto) 4.3 H Baso % (Auto) 0.7 Neut # (Auto) 3.5 Lymph # (Auto) 0.7 L [place] # (Auto) 0.4 Eos # (Auto) 0.2 Baso # (Auto) 0.0 Differential Comment Sodium Potassium Chloride Carbon Dioxide Anion Gap BUN Creatinine Est GFR ( Amer) Est GFR (Non-Af Amer) POC Glucose (mg/dL) 93 115 H Random Glucose Calcium Total Bilirubin AST ALT Alkaline Phosphatase Total Protein Albumin Globulin Albumin/Globulin Ratio 09/06/18 11:22 WBC RBC Hgb Hct MCV MCH MCHC RDW Plt Count MPV Neut % (Auto) Lymph % (Auto) [place] % (Auto) Eos % (Auto) Baso % (Auto) Neut # (Auto) Lymph # (Auto) [place] # (Auto) Eos # (Auto) Baso # (Auto) Differential Comment Sodium 133 Potassium 4.6 Chloride 94 L Carbon Dioxide 28 Anion Gap 15 BUN 47 H Creatinine 2.9 H Est GFR ( Amer) 20 Est GFR (Non-Af Amer) 16 POC Glucose (mg/dL) Random Glucose 114 H D Calcium 9.4 Total Bilirubin 0.9 AST 39 H ALT 15 Alkaline Phosphatase 121 Total Protein 7.4 Albumin 3.8 Globulin 3.5 Albumin/Globulin Ratio 1.1 Attending/Attestation - Attestation I have personally seen and examined this patient.: Yes I have fully participated in the care of the patient.: Yes I have reviewed all pertinent clinical information: Yes Notes (Text): I agree with the assessment and plan. Symptoms appear to be related to uncontrolled hypertension. Will continue management as outlined above.
--- NOTE | 2018-08-26 14:13 | VASCLAB ---
Date of service: 08/26/2018 PROCEDURE: RENAL ARTERY DUPLEX SCAN HISTORY: Uncontrolled HTN COMPARISON: None available. TECHNIQUE: Real-time ultrasonography evaluation of the renal arteries were performed. Comparison is made to the aorta. Report prepared by BUSHRA Ulloa FINDINGS: AORTA: Patent. Peak systolic velocity 81 centimeters/second RIGHT RENAL ARTERY: Renal artery to aorta ratio: N/A * Proximal segment: * Mid segment: * Distal segment: Other findings: Right Kidney measures approximately 9.55 centimeters. LEFT RENAL ARTERY: Renal artery to aorta ratio: 2.0 * Proximal segment: Patent. Peak systolic velocity 158 centimeters/second * Mid segment: Patent. Peak systolic velocity 76 centimeters/second * Distal segment: Patent. Peak systolic velocity 79 centimeters/second Other findings: Left Kidney measures approximately 9.28 centimeters. IMPRESSION: The right renal artery is not visualized. No definite hemodynamically significant stenosis involving the left renal artery.
--- NOTE | 2018-08-26 15:32 | RAD ---
Date of service: 08/25/2018 HISTORY: Code Stroke COMPARISON: 07/10/2018 FINDINGS: LUNGS: No consolidation seen Probable sub cm granulomatous changes left upper lobe PLEURA: No significant pleural effusion identified, no pneumothorax apparent. CARDIOVASCULAR: No aortic atherosclerotic calcification present. Cardiomegaly-similar No significant appearing pulmonary venous congestion. OSSEOUS STRUCTURES: Thoraco lumbar spondylosis. Right shoulder arthrosis. VISUALIZED UPPER ABDOMEN: Normal. OTHER FINDINGS: None. IMPRESSION: No interval acute cardiopulmonary pathology noted. Cardiomegaly similar. Other findings as above.
--- NOTE | 2018-08-26 15:47 | CARD ---
APPROVED REPORT Date of service: 08/26/2018 EXAM: Two-dimensional and M-mode echocardiogram with Doppler and color Doppler. INDICATION CVA/TIA Dyspnea RISK FACTORS Hypertension Hyperlipidemia Diabetes 2D DIMENSIONS IVSd1.2 (0.7-1.1cm)LVDd3.8 (3.9-5.9cm) PWd1.5 (0.7-1.1cm)LA Eaheir17 (18-58mL) LVDs2.5 (2.5-4.0cm)FS (%) 35.0 % LVEF (%)65.1 (>50%)LVEF (North's)68.60 % M-Mode DIMENSIONS Left Atrium (MM)2.67 (2.5-4.0cm)IVSd1.28 (0.7-1.1cm) Aortic Root2.74 (2.2-3.7cm)LVDd4.16 (4.0-5.6cm) Aortic Cusp Exc.1.90 (1.5-2.0cm)PWd1.12 (0.7-1.1cm) FS (%) 37 %LVDs2.63 (2.0-3.8cm) LVEF (%)67 (>50%) Mitral Valve MV E Dcikycuu69.8cm/sMV A Bxhcvgwj74.3cm/sE/A ratio0.7 TDI Lateral E' Peak V6.22cm/sMedial E' Peak V4.09cm/sE/Lateral E'8.2 E/Medial E'12.4 Tricuspid Valve TR Peak [id number]/sTR Peak [id number] LEFT VENTRICLE The left ventricle is normal size. There is mild concentric left ventricular hypertrophy. Left ventricle systolic function is normal. The Ejection Fraction is 60-65%. There is normal LV segmental wall motion. Transmitral Doppler flow pattern is Grade I-abnormal relaxation pattern. There is no ventricular septal defect visualized. RIGHT VENTRICLE The right ventricle is normal size. The right ventricular systolic function is normal. ATRIA The left atrium is mildly dilated. The right atrium size is normal. AORTIC VALVE The aortic valve is mildly sclerotic. The aortic valve is tri-cuspid. No aortic regurgitation is present. There is no aortic valvular stenosis. MITRAL VALVE The mitral valve is normal in structure. There is no evidence of mitral valve prolapse. There is no mitral valve regurgitation noted. TRICUSPID VALVE The tricuspid valve is normal in structure. There is trace tricuspid regurgitation. There is no pulmonary hypertension. PULMONIC VALVE The pulmonic valve is not well visualized. There is trace pulmonic valvular regurgitation. GREAT VESSELS The aortic root is normal in size. The ascending aorta is normal in size. The IVC is normal in size and collapses >50% with inspiration. PERICARDIAL EFFUSION There is no pericardial effusion. <Conclusion> There is mild concentric left ventricular hypertrophy. Left ventricle systolic function is normal. The Ejection Fraction is 60-65%. Transmitral Doppler flow pattern is Grade I-abnormal relaxation pattern.
--- NOTE | 2018-08-26 15:47 | MRI ---
Date of service: 08/26/2018 PROCEDURE: MRI BRAIN WITHOUT CONTRAST HISTORY: code stroke COMPARISON: CT head without contrast from 08/25/2018. TECHNIQUE: Multiplanar, multisequence MR images of the brain were obtained without intravenous contrast enhancement. FINDINGS: HEMORRHAGE: None DWI: No evidence of an acute or early subacute infarction. BRAIN PARENCHYMA: There are m severe chronic microangiopathic changes. There is no mass, mass effect or abnormal extra-axial fluid collection. There is no territorial infarction. The midline sagittal structures are normal. VENTRICLES: There is mild age-related global parenchymal volume loss and proportionate enlargement of the ventricles and cortical sulci. CRANIUM: There is normal bone marrow signal pattern. ORBITS: Grossly unremarkable. PARANASAL SINUSES/MASTOIDS: Predominantly clear. VASCULAR SYSTEM: There are normal signal voids in the larger intracranial arteries. OTHER FINDINGS: None. IMPRESSION: No acute intracranial abnormality. Severe chronic microangiopathic changes and mild age-related global parenchymal volume loss.
--- NOTE | 2018-08-26 16:24 | CT ---
Date of service: 08/25/2018 PROCEDURE: CT Angiography of the neck and brain with contrast HISTORY: Code stroke COMPARISON: None. TECHNIQUE: Contiguous axial images of the neck and brain were obtained from the level of the vertex of the skull to the superior mediastinum in the arteriographic phase of enhancement. Coronal and sagittal reformats or also generated. IV contrast dose: 100 cc Visipaque 320 contrast material. Radiation dose: Total exam DLP = 628.14 mGy-cm. This CT exam was performed using one or more of the following dose reduction techniques: Automated exposure control, adjustment of the mA and/or kV according to patient size, and/or use of iterative reconstruction technique.. FINDINGS: The aortic arch is widely patent despite some very minor aortic atherosclerotic calcification or mural plaque formation.. The origins of the great vessels are widely patent. Both common carotid arteries are also widely patent without evidence of occlusion, significant stenosis or dissection.. There is tiny calcified plaque seen along the posterior margin of the right carotid bifurcation without significant stenosis. Note that the left common carotid artery exhibits a short retropharyngeal course. The distal internal carotid arteries including the petrous cavernous and supraclinoid segments also patent although there are some very minor calcified plaque changes seen along both cavernous carotid arteries. The vertebral arteries are also patent throughout left-sided which is slightly larger in caliber/more dominant than the right side. Basilar artery is patent. The visualized major branches of the [id number] are also patent. Distal branches of the anterior middle and posterior cerebral arteries are relatively symmetric. No evidence of large aneurysm nor vascular malformation. OTHER FINDINGS: Multilevel degenerative spondylosis of the cervical spine present associated with kyphotic angulation deformity. Minor chronic anterior stature loss of C4-C5 and C6 segments likely degenerative in origin. Note is made of distended esophagus with air in fluid level extending to near the level of the thoracic inlet. Consider follow-up esophagram. IMPRESSION: No evidence of occlusion or significant stenosis. Some very minor calcified plaque changes seen posterior aspect right carotid bifurcation. Minimal of calcified plaque changes both cavernous carotid arteries. Note the left common carotid artery exhibits a short retropharyngeal course. No evidence of large aneurysm nor vascular malformation. Markedly distended esophagus with air-fluid level. Follow-up esophagram recommend for further evaluation. Note that preliminary report was provided by overnight radiology service the
--- NOTE | 2018-08-26 18:59 | CP.PCM.HP ---
History of Present Illness - History of Present Illness History of Present Illness: CC: loss of vision HPI: 68 year old female seen in ER c/o loss of vision left eye few days. Also c/o BP elevated SBP 200 and above. C/o headache, dizzyness , numbness and weakness. Non-compliant. Present on Admission - Present on Admission Any Indicators Present on Admission: Yes History of DVT/PE: No History of Uncontrolled Diabetes: No Urinary Catheter: No Decubitus Ulcer Present: No Review of Systems - Review of Systems All systems: reviewed and no additional remarkable complaints except (loss of vision, headche , weakness, no fever, no SOB, no chestpain) Past Patient History - Past Medical History & Family History Past Medical History?: Yes - Past Social History Smoking Status: Never Smoked - CARDIAC Hx Hypertension: Yes - MUSCULOSKELETAL/RHEUMATOLOGICAL Hx Falls: No - PSYCHIATRIC Hx Substance Use: No - SURGICAL HISTORY Hx Surgeries: Yes Hx Hysterectomy: Yes - ANESTHESIA Hx Anesthesia: Yes Hx Anesthesia Reactions: No Hx Malignant Hyperthermia: No Has any member of the family had a problem w/ anesthesia?: No Meds Allergies/Adverse Reactions: Allergies Allergy/AdvReac Type Severity Reaction Status Date / Time peanut Allergy Verified 08/25/18 21:37 Penicillins Allergy Verified 08/25/18 21:37 chocolate Allergy Uncoded 07/10/18 20:04 Physical Exam - Constitutional Appears: No Acute Distress - Head Exam Head Exam: NORMAL INSPECTION - Eye Exam Eye Exam: Normal appearance - ENT Exam ENT Exam: Normal Exam - Neck Exam Neck exam: Positive for: Normal Inspection - Respiratory Exam Respiratory Exam: NORMAL BREATHING PATTERN - Cardiovascular Exam Cardiovascular Exam: REGULAR RHYTHM - GI/Abdominal Exam GI & Abdominal Exam: Soft - Rectal Exam Rectal Exam: Deferred - Extremities Exam Extremities exam: Positive for: normal inspection - Neurological Exam Neurological exam: Alert Results - Vital Signs Recent Vital Signs: Last Vital Signs Temp 98.1 F 08/26/18 15:30 Pulse 73 08/26/18 15:30 Resp 20 08/26/18 15:30 BP 182/116 H 08/26/18 16:35 Pulse Ox 99 08/26/18 15:30 - Labs Result Diagrams: 08/25/18 21:43 08/25/18 21:43 Labs: Laboratory Results - last 24 hr 08/25/18 08/25/18 08/25/18 21:34 21:43 21:43 WBC 4.3 L RBC 4.10 Hgb 11.8 Hct 36.3 MCV 88.8 MCH 28.8 MCHC 32.4 L RDW 14.1 Plt Count 105 L MPV 11.7 Neut % (Auto) 52.7 Lymph % (Auto) 28.0 Smyth % (Auto) 14.1 H Eos % (Auto) 4.6 H Baso % (Auto) 0.6 Neut # (Auto) 2.3 Lymph # (Auto) 1.2 Smyth # (Auto) 0.6 Eos # (Auto) 0.2 Baso # (Auto) 0.0 PT 12.4 H INR 1.1 APTT 28 Sodium Potassium Chloride Carbon Dioxide Anion Gap BUN Creatinine Est GFR ( Amer) Est GFR (Non-Af Amer) POC Glucose (mg/dL) 95 Random Glucose Hemoglobin A1c Calcium Total Bilirubin AST ALT Alkaline Phosphatase Troponin I Total Protein Albumin Globulin Albumin/Globulin Ratio Triglycerides Cholesterol LDL Cholesterol Direct HDL Cholesterol Ur Random Sodium Blood Type Antibody Screen 08/25/18 08/25/18 08/25/18 21:43 21:43 21:43 WBC RBC Hgb Hct MCV MCH MCHC RDW Plt Count MPV Neut % (Auto) Lymph % (Auto) Smyth % (Auto) Eos % (Auto) Baso % (Auto) Neut # (Auto) Lymph # (Auto) Smyth # (Auto) Eos # (Auto) Baso # (Auto) PT INR APTT Sodium 140 Potassium 4.2 Chloride 103 Carbon Dioxide 28 Anion Gap 14 BUN 28 H Creatinine 1.9 H Est GFR ( Amer) 32 Est GFR (Non-Af Amer) 26 POC Glucose (mg/dL) Random Glucose 93 Hemoglobin A1c 5.7 Calcium 9.7 Total Bilirubin 1.2 AST 34 ALT 11 Alkaline Phosphatase 89 Troponin I 0.0300 Total Protein 7.8 Albumin 4.2 Globulin 3.7 Albumin/Globulin Ratio 1.1 Triglycerides 114 Cholesterol 145 LDL Cholesterol Direct 62 HDL Cholesterol 55 Ur Random Sodium Blood Type O POSITIVE Antibody Screen Negative 08/26/18 08/26/18 08/26/18 06:15 12:08 18:01 WBC RBC Hgb Hct MCV MCH MCHC RDW Plt Count MPV Neut % (Auto) Lymph % (Auto) Smyth % (Auto) Eos % (Auto) Baso % (Auto) Neut # (Auto) Lymph # (Auto) Smyth # (Auto) Eos # (Auto) Baso # (Auto) PT INR APTT Sodium Potassium Chloride Carbon Dioxide Anion Gap BUN Creatinine Est GFR ( Amer) Est GFR (Non-Af Amer) POC Glucose (mg/dL) 87 80 Random Glucose Hemoglobin A1c Calcium Total Bilirubin AST ALT Alkaline Phosphatase Troponin I Total Protein Albumin Globulin Albumin/Globulin Ratio Triglycerides Cholesterol LDL Cholesterol Direct HDL Cholesterol Ur Random Sodium 122 Blood Type Antibody Screen Assessment & Plan (1) TIA (transient ischemic attack) Status: Acute (2) Amaurosis fugax of left eye Status: Acute (3) Malignant hypertension Status: Acute (4) CKD (chronic kidney disease) Status: Chronic - Assessment and Plan (Free Text) Assessment: A/P: Start on BP medications. Appreciate renal notes - Date & Time Date: 08/26/18 Time: 19:02
--- NOTE | 2018-08-27 00:03 | CARD ---
APPROVED REPORT Date of service: 08/25/2018 EKG Measurement Heart [id number] ID [id number] <Conclusion> Normal sinus rhythm Possible Left atrial enlargement Left ventricular hypertrophy Abnormal ECG
--- NOTE | 2018-08-27 08:59 | CP.PCM.PN ---
Subjective - Date & Time of Evaluation Date of Evaluation: 08/27/18 Time of Evaluation: 08:25 - Subjective Subjective: Pt still has blurred vision of left eye; No slurred speech work up - reviewed/ (+) small vessel disease Objective - Vital Signs/Intake and Output Vital Signs (last 24 hours): Temp Pulse Resp BP Pulse Ox 98.5 F 81 20 143/90 99 08/27/18 07:00 08/27/18 07:00 08/27/18 07:00 08/27/18 07:00 08/27/18 07:00 Intake and Output: 08/27/18 08/27/18 06:59 18:59 Intake Total 120 Output Total 200 Balance -80 - Medications Medications: Current Medications Amlodipine Besylate (Norvasc) 5 mg PO BID [facility] Last Admin: 08/26/18 17:36 Dose: 5 mg Aspirin (Aspirin Chewable) 81 mg PO DAILY [facility] Clonidine HCl (Catapres) 0.1 mg PO BID [facility] Last Admin: 08/26/18 18:00 Dose: Not Given Clopidogrel Bisulfate (Plavix) 75 mg PO DAILY [facility] Last Admin: 08/26/18 16:00 Dose: 75 mg Heparin Sodium (Porcine) (Heparin) 5,000 units SC Q8 [facility] Last Admin: 08/27/18 06:12 Dose: 5,000 units Hydrochlorothiazide (Microzide) 12.5 mg PO DAILY [facility] Last Admin: 08/26/18 15:59 Dose: 12.5 mg Losartan Potassium (Cozaar) 100 mg PO DAILY [facility] Last Admin: 08/26/18 15:59 Dose: 100 mg - Labs Labs: 08/25/18 21:43 08/25/18 21:43 PT 12.4 SECONDS (9.7-12.2) H 08/25/18 21:43 INR 1.1 08/25/18 21:43 APTT 28 SECONDS (21-34) 08/25/18 21:43 - Constitutional Appears: No Acute Distress - Eye Exam Eye Exam: Normal appearance - ENT Exam ENT Exam: Mucous Membranes Moist - Neck Exam Neck Exam: Full ROM. absent: Lymphadenopathy - Respiratory Exam Respiratory Exam: Clear to Ausculation Bilateral. absent: Rales, Rhonchi, Wheezes - Cardiovascular Exam Cardiovascular Exam: Gallop, REGULAR RHYTHM, +S1, +S2. absent: Murmur - GI/Abdominal Exam GI & Abdominal Exam: Soft, Normal Bowel Sounds. absent: Tenderness - Extremities Exam Extremities Exam: Full ROM, Normal Capillary Refill. absent: Calf Tenderness, Joint Swelling, Pedal Edema Assessment and Plan - Assessment and Plan (Free Text) Assessment: L Eye blindness; HTN, CKD Cont meds/ supportive care
--- NOTE | 2018-08-27 11:52 | CP.PCM.PN ---
Subjective - Date & Time of Evaluation Date of Evaluation: 08/27/18 Time of Evaluation: 11:51 - Subjective Subjective: Neuro Follow-Up Note: Mrs. Lantigua was evaluated this afternoon at bedside. She is still complaining of left eye loss of vision. She states that the numbness to her left arm has resolved. She admits to being under a lot of stress; her father this morning also in [facility]. She attributes her health issues to this stress. Otherwise, pt feels fine. Denies h/a, dizziness, right eye visual changes, chest pain, palpitations, sob, cough, abd pain, n/v/d, paresthesias. Objective - Vital Signs/Intake and Output Vital Signs (last 24 hours): Temp Pulse Resp BP Pulse Ox 98.5 F 99 H 20 143/90 99 08/27/18 07:00 08/27/18 07:35 08/27/18 07:00 08/27/18 07:00 08/27/18 07:00 Intake and Output: 08/27/18 08/27/18 06:59 18:59 Intake Total 120 Output Total 200 Balance -80 - Medications Medications: Current Medications Amlodipine Besylate (Norvasc) 5 mg PO BID [facility] Last Admin: 08/27/18 09:05 Dose: 5 mg Aspirin (Aspirin Chewable) 81 mg PO DAILY [facility] Last Admin: 08/27/18 09:05 Dose: 81 mg Clonidine HCl (Catapres) 0.1 mg PO BID [facility] Last Admin: 08/27/18 09:05 Dose: 0.1 mg Clopidogrel Bisulfate (Plavix) 75 mg PO DAILY [facility] Last Admin: 08/27/18 09:04 Dose: 75 mg Heparin Sodium (Porcine) (Heparin) 5,000 units SC Q8 [facility] Last Admin: 08/27/18 06:12 Dose: 5,000 units Hydrochlorothiazide (Microzide) 12.5 mg PO DAILY [facility] Last Admin: 08/27/18 09:05 Dose: 12.5 mg Losartan Potassium (Cozaar) 100 mg PO DAILY [facility] Last Admin: 08/27/18 09:05 Dose: 100 mg - Labs Labs: 08/25/18 21:43 08/25/18 21:43 PT 12.4 SECONDS (9.7-12.2) H 08/25/18 21:43 INR 1.1 08/25/18 21:43 APTT 28 SECONDS (21-34) 08/25/18 21:43 - Constitutional Appears: Non-toxic, No Acute Distress - Head Exam Head Exam: ATRAUMATIC, NORMAL INSPECTION, NORMOCEPHALIC - Eye Exam Eye Exam: EOMI, Normal appearance, PERRL Pupil Exam: NORMAL ACCOMODATION, PERRL Additional comments: + EOMI Pupils are both reactive to light + tunnel vision to left eye; no visual field deficits to the right No diplopia to right or left eyes No nystagmus - ENT Exam ENT Exam: Mucous Membranes Moist - Neck Exam Neck Exam: Full ROM, Normal Inspection - Respiratory Exam Respiratory Exam: NORMAL BREATHING PATTERN - Extremities Exam Extremities Exam: Full ROM - Back Exam Back Exam: Full ROM - Neurological Exam Neurological Exam: Alert, Awake, Normal Gait, Oriented x3, Reflexes Normal Neuro motor strength exam: Left Upper Extremity: 5, Right Upper Extremity: 5, Left Lower Extremity: 5, Right Lower Extremity: 5 Additional comments: Speech clear No motor or sensory deficits. + tunnel vision to left eye; no visual field deficits to the right No diplopia to right or left eyes - Psychiatric Exam Psychiatric exam: Normal Affect, Normal Mood - Skin Skin Exam: Normal Color Assessment and Plan (1) Amaurosis fugax of left eye Assessment & Plan: -Imaging reviewed -Pt would benefit from ophthalmology consult left eye visual changes. -Continue ASA and Plavix. -Continue current treatment. -Notify neuro team of any acute changes in pt's condition. Sheela Haile, DNP, [employer] Discussed with Dr. Delacruz Status: Acute
--- NOTE | 2018-08-27 12:50 | VASCLAB ---
Date of service: 08/26/2018 PROCEDURE: Carotid Duplex Exam. HISTORY: Code stroke COMPARISON: None available. TECHNIQUE: Grayscale and duplex Doppler evaluation of the cervical carotid and vertebral arteries were performed. The common carotid, carotid bifurcations and cervical Internal Carotid Artery (ICA) and proximal External Carotid Artery (ECA) were evaluated. The vertebral arteries were evaluated for gross patency and flow direction. Report prepared by BUSHRA Ulloa FINDINGS: RIGHT CAROTID ARTERIES: 1. Common Carotid Artery: No significant focal plaque formation of the right common carotid artery. Maximum Peak Systolic velocity: 95 cm/sec: End-diastolic velocity 17 cm/sec. 2. Carotid Bifurcation: plaque formation. Maximum Peak Systolic velocity: 68 cm/sec: End-diastolic velocity 19 cm/sec. 3. Internal Carotid Artery: Plaque description: 3.1. Proximal Segment: Peak systolic velocity 46 cm/sec: End-diastolic velocity 18 cm/sec - % stenosis 0-15% 3.2. Middle Segment: Peak systolic velocity 81 cm/sec: End-diastolic velocity 33 cm/sec - % stenosis 0-15% 3.3. Distal Segment: Peak systolic velocity 41 cm/sec: End-diastolic velocity 18 cm/sec - % stenosis 0-15% 4. External Carotid Artery: No significant focal plaque formation. Peak systolic velocity 82 cm/sec 5. ICA/CCA Ratio: 1.1 LEFT CAROTID ARTERIES: 1. Common Carotid Artery: No significant focal plaque formation of the left common carotid artery. Maximum Peak Systolic velocity: 112 cm/sec: End-diastolic velocity 27 cm/sec. 2. Carotid Bifurcation: plaque formation. Maximum Peak Systolic velocity: 40 cm/sec: End-diastolic velocity 14 cm/sec. 3. Internal Carotid Artery: Plaque description: 3.1. Proximal Segment: Peak systolic velocity 77 cm/sec: End-diastolic velocity 24 cm/sec - % stenosis 0-15% 3.2. Middle Segment: Peak systolic velocity 51 cm/sec: End-diastolic velocity 18 cm/sec - % stenosis 0-15% 3.3. Distal Segment: Peak systolic velocity 52 cm/sec: End-diastolic velocity 23 cm/sec - % stenosis 0-15% 4. External Carotid Artery: No significant focal plaque formation. Peak systolic velocity 55 cm/sec 5. ICA/CCA Ratio: 1.0 VERTEBRAL ARTERIES: 1. Right Vertebral Artery: The right vertebral artery flow direction is antegrade. 2. Left Vertebral Artery: The left vertebral artery flow direction is antegrade. OTHER FINDINGS: None. IMPRESSION: RIGHT: Duplex scan does not suggest hemodynamically significant stenosis of the right extracranial carotid arteries. LEFT: Duplex scan does not suggest hemodynamically significant stenosis of the left extracranial carotid arteries.
--- NOTE | 2018-08-27 13:35 | CP.PCM.PN ---
Subjective - Date & Time of Evaluation Date of Evaluation: 08/27/18 Time of Evaluation: 13:32 - Subjective Subjective: HTN much better controlled still with decreased vision left eye possible retinal artery occlusion a sper medicine no SOB, CPs, n, v, dysuria Renal scan- left renal artery normal, right not visualized Objective - Vital Signs/Intake and Output Vital Signs (last 24 hours): Temp Pulse Resp BP Pulse Ox 98.5 F 99 H 20 143/90 99 08/27/18 07:00 08/27/18 07:35 08/27/18 07:00 08/27/18 07:00 08/27/18 07:00 Intake and Output: 08/27/18 08/27/18 06:59 18:59 Intake Total 120 Output Total 200 Balance -80 - Medications Medications: Current Medications Amlodipine Besylate (Norvasc) 5 mg PO BID [facility] Last Admin: 08/27/18 09:05 Dose: 5 mg Aspirin (Aspirin Chewable) 81 mg PO DAILY [facility] Last Admin: 08/27/18 09:05 Dose: 81 mg Clonidine HCl (Catapres) 0.1 mg PO BID [facility] Last Admin: 08/27/18 09:05 Dose: 0.1 mg Clopidogrel Bisulfate (Plavix) 75 mg PO DAILY [facility] Last Admin: 08/27/18 09:04 Dose: 75 mg Heparin Sodium (Porcine) (Heparin) 5,000 units SC Q8 [facility] Last Admin: 08/27/18 12:59 Dose: 5,000 units Hydrochlorothiazide (Microzide) 12.5 mg PO DAILY [facility] Last Admin: 08/27/18 09:05 Dose: 12.5 mg Losartan Potassium (Cozaar) 100 mg PO DAILY [facility] Last Admin: 08/27/18 09:05 Dose: 100 mg - Labs Labs: 08/25/18 21:43 08/25/18 21:43 PT 12.4 SECONDS (9.7-12.2) H 08/25/18 21:43 INR 1.1 08/25/18 21:43 APTT 28 SECONDS (21-34) 08/25/18 21:43 - Constitutional Appears: No Acute Distress, Chronically Ill - Head Exam Head Exam: ATRAUMATIC, NORMAL INSPECTION - Eye Exam Eye Exam: EOMI, Normal appearance - Neck Exam Neck Exam: Normal Inspection. absent: Tenderness - Respiratory Exam Respiratory Exam: Clear to Ausculation Bilateral, NORMAL BREATHING PATTERN - Cardiovascular Exam Cardiovascular Exam: REGULAR RHYTHM, +S1 - GI/Abdominal Exam GI & Abdominal Exam: Soft. absent: Tenderness - Extremities Exam Extremities Exam: Normal Inspection. absent: Tenderness - Neurological Exam Neurological Exam: Awake, CN II-XII Intact - Skin Skin Exam: Dry, Warm Assessment and Plan (1) HAMLET (acute kidney injury) Status: Acute (2) Amaurosis fugax of left eye Status: Acute (3) Hypertension Status: Acute - Assessment and Plan (Free Text) Plan: Same BP meds secondary HTN workup renal US- evaluate parenchyma repeat chemistries
--- NOTE | 2018-08-27 15:07 | RAD ---
Date of service: 08/27/2018 PROCEDURE: Radiographs of the left shoulder HISTORY: left shoulder pain COMPARISON: No prior. FINDINGS: BONES: Bone alignment and mineralization are normal. There is no acute displaced fracture or bone destruction. JOINTS: Mild degenerative osteoarthrosis in the acromioclavicular and glenohumeral joints. SOFT TISSUES: Normal. OTHER FINDINGS: None. IMPRESSION: No acute displaced fracture or dislocation.
--- NOTE | 2018-08-27 18:51 | US ---
Date of service: 08/27/2018 PROCEDURE: Ultrasound of the Kidneys HISTORY: evaluate echoes, size COMPARISON: None available. TECHNIQUE: Grayscale imaging was performed. FINDINGS: RIGHT KIDNEY: Measures: 8.7 cm. Normal in size, contour with diffuse increased echogenicity. No stone, solid mass lesion or hydronephrosis visualized. LEFT KIDNEY: Measures: 8.8 cm. Normal in size, contour with diffuse increased echogenicity. No stone, solid mass lesion or hydronephrosis visualized. There is a 7 x 5 x 7 mm simple cyst in the lower pole. OTHER FINDINGS: None. IMPRESSION: Chronic renal parenchymal disease. No hydronephrosis or nephrolithiasis. 7 mm simple cyst in the lower pole of the left kidney.
[2018-08-28 00:38] LABS: GRANULAR CAST 6 /lpf (0-1); SQUAMOUS EPITHIAL 14 /hpf (0-5); URINE BACTERIA MANY (<OCC); URINE BILIRUBIN NEGATIVE (NEGATIVE); URINE BLOOD 1+ (NEGATIVE); URINE CLARITY Hazy (Clear); URINE COLOR Amber (YELLOW); URINE GLUCOSE (UA) NORMAL (Normal); URINE LEUKOCYTE ESTERASE 3+ Leu/uL (Negative); URINE PROTEIN 2+ mg/dL (NEGATIVE)
--- NOTE | 2018-08-28 04:08 | CON ---
DATE: 08/27/2018 HISTORY OF PRESENT ILLNESS: The patient is a 68-year-old female, examined for complaint of decreased vision in the left eye which she noted onset two days ago. She has negative past ophthalmic history. She is admitted for workup of TIA. PHYSICAL EXAMINATION: Examination revealed a visual acuity of 20/40 in the right eye and finger counting in the left eye. Anterior segment examination reveals small cataracts in both eyes. Intraocular pressures were normal in both eyes. On dilated fundus examination, there was noted a hypertensive narrowing in the right eye with a normal disc. Fundus examination, left eye revealed a central retinal vein occlusion. IMPRESSION: 1. Blurred vision, left eye secondary to central retinal vein occlusion. 2. Hypertensive retinopathy. PLAN: The patient was advised after discharge to come to the office for further evaluation and treatment by our retinal specialist. Pablo Hernández MD
[2018-08-28 07:46] LABS: MEAN CELL VOLUME 88.6 fL (81.0-99.0); MEAN CORPUSCULAR HEMOGLOBIN 29.7 pg (27.0-31.0); MEAN CORPUSCULAR HGB CONC 33.5 g/dL (33.0-37.0); MEAN PLATELET VOLUME 12.3 fL (7.2-11.7); RBC 3.7 Mil/uL (3.80-5.20); RED CELL DISTRIBUTION WIDTH 14.2 % (11.5-14.5); WHITE BLOOD COUNT 4.1 K/uL (4.8-10.8)
[2018-08-28 08:11] LABS: ALB/GLOB RATIO 1.1 (1.0-2.1); ALBUMIN 3.5 g/dL (3.5-5.0); CALCIUM 9.6 mg/dl (8.6-10.4)
--- NOTE | 2018-08-28 08:52 | CP.PCM.PN ---
Subjective - Date & Time of Evaluation Date of Evaluation: 08/28/18 Time of Evaluation: 08:45 - Subjective Subjective: bp normal to low afebrile creatinine up to 3 if correct up in bed comfortable ate entire breakfast states sob? pain in abd over heparin injection sites renal ultrasound shows small kidneys with no rt renal shown on isotope scan ROS no headache left eye blurriness persists unchanged sob no cough no chest pain no n,v,d today no dysuria Objective - Vital Signs/Intake and Output Vital Signs (last 24 hours): Temp Pulse Resp BP Pulse Ox 98.0 F 84 20 131/87 98 08/28/18 07:00 08/28/18 07:33 08/28/18 07:00 08/28/18 07:00 08/28/18 07:00 Intake and Output: 08/28/18 08/28/18 06:59 18:59 Intake Total 350 Output Total 250 Balance 100 - Medications Medications: Current Medications Amlodipine Besylate (Norvasc) 5 mg PO BID [facility] Last Admin: 08/27/18 18:22 Dose: 5 mg Aspirin (Aspirin Chewable) 81 mg PO DAILY [facility] Last Admin: 08/27/18 09:05 Dose: 81 mg Clonidine HCl (Catapres) 0.1 mg PO BID [facility] Last Admin: 08/27/18 18:21 Dose: 0.1 mg Clopidogrel Bisulfate (Plavix) 75 mg PO DAILY [facility] Last Admin: 08/27/18 09:04 Dose: 75 mg Heparin Sodium (Porcine) (Heparin) 5,000 units SC Q8 [facility] Last Admin: 08/28/18 05:32 Dose: Not Given Hydrochlorothiazide (Microzide) 12.5 mg PO DAILY [facility] Last Admin: 08/27/18 09:05 Dose: 12.5 mg Losartan Potassium (Cozaar) 100 mg PO DAILY [facility] Last Admin: 08/27/18 09:05 Dose: 100 mg - Labs Labs: 08/28/18 07:40 08/28/18 07:40 PT 12.4 SECONDS (9.7-12.2) H 08/25/18 21:43 INR 1.1 08/25/18 21:43 APTT 28 SECONDS (21-34) 08/25/18 21:43 - Constitutional Appears: Well, No Acute Distress - ENT Exam ENT Exam: Mucous Membranes Moist - Respiratory Exam Respiratory Exam: Clear to Ausculation Bilateral, NORMAL BREATHING PATTERN - Cardiovascular Exam Cardiovascular Exam: REGULAR RHYTHM. absent: JVD - GI/Abdominal Exam GI & Abdominal Exam: Soft. absent: Distended Additional comments: non tender when distracted - Extremities Exam Extremities Exam: absent: Calf Tenderness, Pedal Edema - Back Exam Back Exam: absent: CVA tenderness (L), CVA tenderness (R) - Psychiatric Exam Psychiatric exam: Normal Mood - Skin Skin Exam: Dry, Warm Assessment and Plan (1) HAMLET (acute kidney injury) Status: Acute (2) Amaurosis fugax of left eye Status: Acute (3) Malignant hypertension Status: Acute (4) CKD (chronic kidney disease) Status: Chronic - Assessment and Plan (Free Text) Plan: to repeat bmp hold losartan await further lab data
--- NOTE | 2018-08-28 15:37 | CP.PCM.PN ---
Subjective - Date & Time of Evaluation Date of Evaluation: 08/28/18 Time of Evaluation: 15:35 - Subjective Subjective: S: c/o shoulder pain, on and off. No fever. No injury Objective - Vital Signs/Intake and Output Vital Signs (last 24 hours): Temp Pulse Resp BP Pulse Ox 98.0 F 84 20 131/87 98 08/28/18 07:00 08/28/18 07:33 08/28/18 07:00 08/28/18 07:00 08/28/18 07:00 Intake and Output: 08/28/18 08/28/18 06:59 18:59 Intake Total 350 Output Total 250 Balance 100 - Medications Medications: Current Medications Acetaminophen (Tylenol 325mg Tab) 650 mg PO Q6 PRN PRN Reason: Fever >100.4 F Last Admin: 08/28/18 13:34 Dose: 650 mg Amlodipine Besylate (Norvasc) 5 mg PO BID [facility] Last Admin: 08/28/18 09:58 Dose: 5 mg Aspirin (Aspirin Chewable) 81 mg PO DAILY [facility] Last Admin: 08/28/18 09:58 Dose: 81 mg Clonidine HCl (Catapres) 0.1 mg PO BID [facility] Last Admin: 08/28/18 09:56 Dose: 0.1 mg Clopidogrel Bisulfate (Plavix) 75 mg PO DAILY [facility] Last Admin: 08/28/18 09:56 Dose: 75 mg Heparin Sodium (Porcine) (Heparin) 5,000 units SC Q8 [facility] Last Admin: 08/28/18 13:35 Dose: 5,000 units Hydrochlorothiazide (Microzide) 12.5 mg PO DAILY [facility] Last Admin: 08/28/18 09:57 Dose: 12.5 mg Tramadol HCl (Ultram) 50 mg PO TID PRN PRN Reason: Pain, moderate (4-7) - Labs Labs: 08/28/18 07:40 08/28/18 07:40 PT 12.4 SECONDS (9.7-12.2) H 08/25/18 21:43 INR 1.1 08/25/18 21:43 APTT 28 SECONDS (21-34) 08/25/18 21:43 - Constitutional Appears: No Acute Distress - Head Exam Head Exam: NORMAL INSPECTION - ENT Exam ENT Exam: Normal Exam - Neck Exam Neck Exam: Normal Inspection - Respiratory Exam Respiratory Exam: NORMAL BREATHING PATTERN - Cardiovascular Exam Cardiovascular Exam: REGULAR RHYTHM - GI/Abdominal Exam GI & Abdominal Exam: Soft - Rectal Exam Rectal Exam: Deferred - Extremities Exam Extremities Exam: Normal Inspection - Neurological Exam Neurological Exam: Alert Assessment and Plan (1) TIA (transient ischemic attack) Status: Acute (2) Amaurosis fugax of left eye Status: Acute (3) Malignant hypertension Status: Acute (4) CKD (chronic kidney disease) Status: Chronic - Assessment and Plan (Free Text) Assessment: A?P: Continue medications. D/c Lozartan. CR 3. Appreciated renal notes. Physical therapy consult
[2018-08-28] MEDS: Lidocaine 5% Patch TD SCH (19:23)
--- NOTE | 2018-08-29 08:53 | CP.PCM.PN ---
Subjective - Date & Time of Evaluation Date of Evaluation: 08/29/18 Time of Evaluation: 08:00 - Subjective Subjective: no new complaints. still has vision loss of left eye Objective - Vital Signs/Intake and Output Vital Signs (last 24 hours): Temp Pulse Resp BP Pulse Ox 98.0 F 70 20 144/86 99 08/29/18 07:00 08/29/18 07:30 08/29/18 07:00 08/29/18 07:00 08/29/18 07:00 Intake and Output: 08/29/18 08/29/18 06:59 18:59 Intake Total 320 Output Total 400 Balance -80 - Medications Medications: Current Medications Acetaminophen (Tylenol 325mg Tab) 650 mg PO Q6 PRN PRN Reason: Fever >100.4 F Last Admin: 08/28/18 13:34 Dose: 650 mg Aspirin (Aspirin Chewable) 81 mg PO DAILY [facility] Last Admin: 08/28/18 09:58 Dose: 81 mg Clonidine HCl (Catapres) 0.1 mg PO BID [facility] Last Admin: 08/28/18 19:02 Dose: Not Given Clopidogrel Bisulfate (Plavix) 75 mg PO DAILY [facility] Last Admin: 08/28/18 09:56 Dose: 75 mg Hydrochlorothiazide (Microzide) 12.5 mg PO DAILY [facility] Last Admin: 08/28/18 09:57 Dose: 12.5 mg Lidocaine (Lidoderm) 1 ea TD DAILY [facility] Last Admin: 08/28/18 19:23 Dose: 1 ea Tramadol HCl (Ultram) 50 mg PO TID PRN PRN Reason: Pain, moderate (4-7) Last Admin: 08/29/18 05:34 Dose: 50 mg - Labs Labs: 08/28/18 07:40 08/28/18 07:40 PT 12.4 SECONDS (9.7-12.2) H 08/25/18 21:43 INR 1.1 08/25/18 21:43 APTT 28 SECONDS (21-34) 08/25/18 21:43 - Constitutional Appears: Non-toxic - Head Exam Head Exam: NORMAL INSPECTION - Eye Exam Eye Exam: Normal appearance - ENT Exam ENT Exam: Mucous Membranes Moist - Neck Exam Neck Exam: Full ROM - Respiratory Exam Respiratory Exam: NORMAL BREATHING PATTERN - Cardiovascular Exam Cardiovascular Exam: REGULAR RHYTHM - GI/Abdominal Exam GI & Abdominal Exam: Normal Bowel Sounds - Rectal Exam Rectal Exam: Deferred - Extremities Exam Extremities Exam: absent: Pedal Edema - Back Exam Back Exam: NORMAL INSPECTION - Neurological Exam Neurological Exam: Alert - Psychiatric Exam Psychiatric exam: Normal Affect - Skin Skin Exam: Normal Color Assessment and Plan (1) Hypertension Assessment & Plan: blood pressure improved. conitnue current mangement. echo normal LV function Status: Acute (2) Amaurosis fugax of left eye Assessment & Plan: per neuro Status: Acute
[2018-08-29] MEDS: Lidocaine 5% Patch TD SCH (10:41)
[2018-08-29] MEDS ORDERED: Magnesium Hydroxide Susp 30 ml UD PO ONE (18:08)
--- NOTE | 2018-08-30 08:22 | CP.PCM.PN ---
Subjective - Date & Time of Evaluation Date of Evaluation: 08/30/18 Time of Evaluation: 07:50 - Subjective Subjective: Pt feels dizzy w/ standing; also constipated/ no bowel movement since admission. No n/v, no dysuria, (+) freq/ nocturia No CP, no SOB, no edema, no cough; Still w/ blurred l vision Objective - Vital Signs/Intake and Output Vital Signs (last 24 hours): Temp Pulse Resp BP Pulse Ox 98.2 F 58 L 20 129/75 99 08/30/18 04:00 08/30/18 07:05 08/30/18 04:00 08/30/18 04:05 08/30/18 04:00 - Medications Medications: Current Medications Acetaminophen (Tylenol 325mg Tab) 650 mg PO Q6 PRN PRN Reason: Fever >100.4 F Last Admin: 08/29/18 10:41 Dose: 650 mg Aspirin (Aspirin Chewable) 81 mg PO DAILY [facility] Last Admin: 08/29/18 10:42 Dose: 81 mg Clonidine HCl (Catapres) 0.1 mg PO BID [facility] Last Admin: 08/29/18 18:31 Dose: 0.1 mg Clopidogrel Bisulfate (Plavix) 75 mg PO DAILY [facility] Last Admin: 08/29/18 10:42 Dose: 75 mg Hydrochlorothiazide (Microzide) 12.5 mg PO DAILY [facility] Last Admin: 08/29/18 10:42 Dose: 12.5 mg Lidocaine (Lidoderm) 1 ea TD DAILY [facility] Last Admin: 08/29/18 10:41 Dose: 1 ea Polyethylene Glycol (Miralax) 17 gm PO BID [facility] Tramadol HCl (Ultram) 50 mg PO TID PRN PRN Reason: Pain, moderate (4-7) Last Admin: 08/29/18 22:08 Dose: 50 mg - Labs Labs: 08/28/18 07:40 08/28/18 07:40 PT 12.4 SECONDS (9.7-12.2) H 08/25/18 21:43 INR 1.1 08/25/18 21:43 APTT 28 SECONDS (21-34) 08/25/18 21:43 - Constitutional Appears: No Acute Distress - Eye Exam Eye Exam: Normal appearance - ENT Exam ENT Exam: Mucous Membranes Moist - Neck Exam Neck Exam: Full ROM. absent: Lymphadenopathy, Normal Inspection - Respiratory Exam Respiratory Exam: Decreased Breath Sounds. absent: Rales, Rhonchi, Wheezes - Cardiovascular Exam Cardiovascular Exam: REGULAR RHYTHM, +S1, +S2. absent: Diastolic murmur, Gallop, JVD - GI/Abdominal Exam GI & Abdominal Exam: Soft. absent: Tenderness - Extremities Exam Extremities Exam: Normal Capillary Refill. absent: Calf Tenderness, Full ROM (left shoulder with anterior tenderness, xander dec arm raising), Joint Swelling, Pedal Edema Assessment and Plan - Assessment and Plan (Free Text) Assessment: Amaurosis Fugax; constipation HTN, CKD with HAMLET Cont meds/ supportive care/ Miralax Encourage to ambulate Start Phy therapy
[2018-08-30] MEDS: POLYETHYLENE GLYCOL 3350 17 GM/Dose PACKET PO SCH ×2 (09:04→17:22)
[2018-08-30] MEDS: Lidocaine 5% Patch TD SCH (09:12)
--- NOTE | 2018-08-30 11:06 | CP.PCM.PN ---
Subjective - Date & Time of Evaluation Date of Evaluation: 08/30/18 Time of Evaluation: 11:02 - Subjective Subjective: still with left eye loss of vision, increase headaches HTN better controlled JERICA I stopped due to increased creatinine-3.0 renal US showed echogenic kidneys poor appetite still, no n, v, fevers, chills Objective - Vital Signs/Intake and Output Vital Signs (last 24 hours): Temp Pulse Resp BP Pulse Ox 98.1 F 58 L 20 150/90 97 08/30/18 07:00 08/30/18 07:05 08/30/18 07:00 08/30/18 07:00 08/30/18 07:00 - Medications Medications: Current Medications Acetaminophen (Tylenol 325mg Tab) 650 mg PO Q6 PRN PRN Reason: Fever >100.4 F Last Admin: 08/29/18 10:41 Dose: 650 mg Aspirin (Aspirin Chewable) 81 mg PO DAILY [facility] Last Admin: 08/30/18 09:05 Dose: 81 mg Clonidine HCl (Catapres) 0.1 mg PO BID [facility] Last Admin: 08/30/18 09:05 Dose: 0.1 mg Clopidogrel Bisulfate (Plavix) 75 mg PO DAILY [facility] Last Admin: 08/30/18 09:05 Dose: 75 mg Hydrochlorothiazide (Microzide) 12.5 mg PO DAILY [facility] Last Admin: 08/30/18 09:05 Dose: 12.5 mg Lidocaine (Lidoderm) 1 ea TD DAILY [facility] Last Admin: 08/30/18 09:12 Dose: 1 ea Polyethylene Glycol (Miralax) 17 gm PO BID [facility] Last Admin: 08/30/18 09:04 Dose: 17 gm Tramadol HCl (Ultram) 50 mg PO TID PRN PRN Reason: Pain, moderate (4-7) Last Admin: 08/30/18 09:10 Dose: 50 mg - Labs Labs: 08/28/18 07:40 08/28/18 07:40 PT 12.4 SECONDS (9.7-12.2) H 08/25/18 21:43 INR 1.1 08/25/18 21:43 APTT 28 SECONDS (21-34) 08/25/18 21:43 - Constitutional Appears: No Acute Distress, Chronically Ill - Head Exam Head Exam: ATRAUMATIC, NORMAL INSPECTION - Eye Exam Eye Exam: EOMI, Normal appearance - Neck Exam Neck Exam: Normal Inspection. absent: Tenderness - Respiratory Exam Respiratory Exam: Clear to Ausculation Bilateral, NORMAL BREATHING PATTERN - Cardiovascular Exam Cardiovascular Exam: REGULAR RHYTHM, +S1 - GI/Abdominal Exam GI & Abdominal Exam: Soft. absent: Tenderness - Extremities Exam Extremities Exam: Normal Inspection. absent: Tenderness - Neurological Exam Neurological Exam: Awake, CN II-XII Intact - Skin Skin Exam: Dry, Warm Assessment and Plan (1) HAMLET (acute kidney injury) Status: Acute (2) Amaurosis fugax of left eye Status: Acute (3) Hypertension Status: Acute - Assessment and Plan (Free Text) Plan: re-add amlodipine quantify urine protein excretion recheck chemistries avoid JERICA I
[2018-08-30 12:39] LABS: ALB/GLOB RATIO 1.2 (1.0-2.1); ALBUMIN 3.8 g/dL (3.5-5.0); CALCIUM 9.4 mg/dl (8.6-10.4)
--- NOTE | 2018-08-30 14:42 | CP.PCM.PCO ---
Physician Communication Note - Physician Communication Note Physician Communication Note: no further neuro recs; f/u with ophthalmology outpatient
[2018-08-30 22:40] LABS: ALDO/PRA RATIO 7.7 Ratio (0.9-28.9)
[2018-08-31 07:03] LABS: HEMOGLOBIN 11.1 g/dL (11.0-16.0); MEAN CELL VOLUME 88.8 fL (81.0-99.0); MEAN CORPUSCULAR HEMOGLOBIN 29.6 pg (27.0-31.0); MEAN CORPUSCULAR HGB CONC 33.4 g/dL (33.0-37.0); MEAN PLATELET VOLUME 12.2 fL (7.2-11.7); RBC 3.74 Mil/uL (3.80-5.20); RED CELL DISTRIBUTION WIDTH 14.3 % (11.5-14.5); WHITE BLOOD COUNT 3.9 K/uL (4.8-10.8)
[2018-08-31 08:42] LABS: ALB/GLOB RATIO 1.2 (1.0-2.1); ALBUMIN 3.8 g/dL (3.5-5.0); CALCIUM 9.8 mg/dl (8.6-10.4)
--- NOTE | 2018-08-31 09:01 | CP.PCM.PN ---
Subjective - Date & Time of Evaluation Date of Evaluation: 08/31/18 Time of Evaluation: 08:40 - Subjective Subjective: Pt felt continues CP/ gas and heaviness around epigastric area. States mild SOB and nausea. No cough, no diaphoresis, no edema. No dysuria, no body ache Objective - Vital Signs/Intake and Output Vital Signs (last 24 hours): Temp Pulse Resp BP Pulse Ox 97.7 F 55 L 20 143/86 95 08/31/18 07:00 08/31/18 07:00 08/31/18 07:00 08/31/18 07:00 08/31/18 07:00 - Medications Medications: Current Medications Acetaminophen (Tylenol 325mg Tab) 650 mg PO Q6 PRN PRN Reason: Fever >100.4 F Last Admin: 08/29/18 10:41 Dose: 650 mg Amlodipine Besylate (Norvasc) 5 mg PO DAILY [facility] Aspirin (Aspirin Chewable) 81 mg PO DAILY [facility] Last Admin: 08/30/18 09:05 Dose: 81 mg Clonidine HCl (Catapres) 0.1 mg PO BID [facility] Last Admin: 08/30/18 17:21 Dose: 0.1 mg Clopidogrel Bisulfate (Plavix) 75 mg PO DAILY [facility] Last Admin: 08/30/18 09:05 Dose: 75 mg Lidocaine (Lidoderm) 1 ea TD DAILY [facility] Last Admin: 08/30/18 09:12 Dose: 1 ea Polyethylene Glycol (Miralax) 17 gm PO BID [facility] Last Admin: 08/30/18 17:22 Dose: 17 gm Tramadol HCl (Ultram) 50 mg PO TID PRN PRN Reason: Pain, moderate (4-7) Last Admin: 08/30/18 17:25 Dose: 50 mg - Labs Labs: 08/31/18 06:58 08/31/18 06:58 PT 12.4 SECONDS (9.7-12.2) H 08/25/18 21:43 INR 1.1 08/25/18 21:43 APTT 28 SECONDS (21-34) 08/25/18 21:43 - Constitutional Appears: No Acute Distress - Eye Exam Eye Exam: Normal appearance - ENT Exam ENT Exam: Mucous Membranes Moist - Neck Exam Neck Exam: Full ROM. absent: Lymphadenopathy, Normal Inspection - Respiratory Exam Respiratory Exam: Clear to Ausculation Bilateral. absent: Rales, Rhonchi, Wheezes, Respiratory Distress - Cardiovascular Exam Cardiovascular Exam: REGULAR RHYTHM, +S1, +S2. absent: Gallop, JVD, Murmur - GI/Abdominal Exam GI & Abdominal Exam: Soft, Tenderness - Extremities Exam Extremities Exam: Full ROM, Normal Capillary Refill. absent: Calf Tenderness, Joint Swelling Assessment and Plan - Assessment and Plan (Free Text) Assessment: Atyp CP (normal EKG) HTN, CKD, Recent Retinal artery stenosis Protonix/ Maallox Cont meds/ supportive care Recall Cardio and place on Tele
[2018-08-31] MEDS: POLYETHYLENE GLYCOL 3350 17 GM/Dose PACKET PO SCH ×2 (09:11→18:07)
[2018-08-31] MEDS: Lidocaine 5% Patch TD SCH (09:13)
--- NOTE | 2018-08-31 09:42 | CP.PCM.PN ---
Subjective - Date & Time of Evaluation Date of Evaluation: 08/31/18 Time of Evaluation: 09:40 - Subjective Subjective: afebrile bp stable and controlled creatinine down to 2.4 awake alert comfortable heavy chest pain earlier with sob no radiation never had it before intermittent nausae and vomiting ROS no dizziness no cough no abdomenal pain,constipated n odysuria Objective - Vital Signs/Intake and Output Vital Signs (last 24 hours): Temp Pulse Resp BP Pulse Ox 97.7 F 55 L 20 143/86 95 08/31/18 07:00 08/31/18 07:00 08/31/18 07:00 08/31/18 07:00 08/31/18 07:00 - Medications Medications: Current Medications Acetaminophen (Tylenol 325mg Tab) 650 mg PO Q6 PRN PRN Reason: Fever >100.4 F Last Admin: 08/29/18 10:41 Dose: 650 mg Al Hydrox/Mg Hydrox/Simethicone (Maalox Plus 30 Ml) 30 ml PO Q6 [facility] Amlodipine Besylate (Norvasc) 5 mg PO DAILY [facility] Last Admin: 08/31/18 09:17 Dose: 5 mg Aspirin (Aspirin Chewable) 81 mg PO DAILY [facility] Last Admin: 08/31/18 09:12 Dose: 81 mg Clonidine HCl (Catapres) 0.1 mg PO BID [facility] Last Admin: 08/31/18 09:11 Dose: 0.1 mg Clopidogrel Bisulfate (Plavix) 75 mg PO DAILY [facility] Last Admin: 08/31/18 09:12 Dose: 75 mg Famotidine (Pepcid) 20 mg PO BID [facility] Last Admin: 08/31/18 09:23 Dose: 20 mg Lidocaine (Lidoderm) 1 ea TD DAILY [facility] Last Admin: 08/31/18 09:13 Dose: 1 ea Pantoprazole Sodium (Protonix Ec Tab) 40 mg PO DAILY [facility] Polyethylene Glycol (Miralax) 17 gm PO BID [facility] Last Admin: 08/31/18 09:11 Dose: 17 gm Tramadol HCl (Ultram) 50 mg PO TID PRN PRN Reason: Pain, moderate (4-7) Last Admin: 08/31/18 09:12 Dose: 50 mg - Labs Labs: 08/31/18 06:58 08/31/18 06:58 PT 12.4 SECONDS (9.7-12.2) H 08/25/18 21:43 INR 1.1 08/25/18 21:43 APTT 28 SECONDS (21-34) 08/25/18 21:43 - Constitutional Appears: Well, No Acute Distress - ENT Exam ENT Exam: Mucous Membranes Moist - Respiratory Exam Respiratory Exam: Clear to Ausculation Bilateral, NORMAL BREATHING PATTERN - Cardiovascular Exam Cardiovascular Exam: REGULAR RHYTHM. absent: JVD - GI/Abdominal Exam GI & Abdominal Exam: Soft. absent: Distended, Tenderness - Extremities Exam Extremities Exam: absent: Calf Tenderness - Back Exam Back Exam: absent: CVA tenderness (L), CVA tenderness (R) - Neurological Exam Neurological Exam: Alert, Awake - Psychiatric Exam Psychiatric exam: Normal Mood - Skin Skin Exam: Dry, Warm Assessment and Plan (1) HAMLET (acute kidney injury) Status: Acute (2) Amaurosis fugax of left eye Status: Acute (3) Malignant hypertension Status: Acute (4) CKD (chronic kidney disease) Status: Chronic - Assessment and Plan (Free Text) Plan: await evaluation chest pain follow chems closely try to avoid nephrotoxins
[2018-08-31] MEDS ORDERED: Pantoprazole 40 mg EC Tab PO SCH (10:00)
[2018-08-31] MEDS: Alum-Mag Hydrox-Simethicone Susp (30 mL) PO SCH ×2 (12:39→18:07)
[2018-08-31 16:37] LABS: CK-MB 0.29 ng/mL (0.0-3.38); TROPONIN I 0.032 ng/mL (0.00-0.120)
--- NOTE | 2018-08-31 21:48 | CP.PCM.PN ---
Subjective - Date & Time of Evaluation Date of Evaluation: 08/31/18 Time of Evaluation: 21:35 - Subjective Subjective: deshawn had an episode of chest pain, which occurred at rest. chest pain is substernal.. no dyspnea Objective - Vital Signs/Intake and Output Vital Signs (last 24 hours): Temp Pulse Resp BP Pulse Ox 98.1 F 58 L 20 104/68 100 08/31/18 15:02 08/31/18 18:08 08/31/18 15:02 08/31/18 18:08 08/31/18 15:02 Intake and Output: 08/31/18 09/01/18 18:59 06:59 Intake Total 450 Balance 450 - Medications Medications: Current Medications Acetaminophen (Tylenol 325mg Tab) 650 mg PO Q6 PRN PRN Reason: Fever >100.4 F Last Admin: 08/29/18 10:41 Dose: 650 mg Al Hydrox/Mg Hydrox/Simethicone (Maalox Plus 30 Ml) 30 ml PO Q6 [facility] Last Admin: 08/31/18 18:07 Dose: 30 ml Amlodipine Besylate (Norvasc) 5 mg PO DAILY [facility] Last Admin: 08/31/18 09:17 Dose: 5 mg Aspirin (Aspirin Chewable) 81 mg PO DAILY [facility] Last Admin: 08/31/18 09:12 Dose: 81 mg Clonidine HCl (Catapres) 0.1 mg PO BID [facility] Last Admin: 08/31/18 18:08 Dose: Not Given Clopidogrel Bisulfate (Plavix) 75 mg PO DAILY [facility] Last Admin: 08/31/18 09:12 Dose: 75 mg Famotidine (Pepcid) 20 mg PO BID [facility] Last Admin: 08/31/18 18:07 Dose: 20 mg Lidocaine (Lidoderm) 1 ea TD DAILY [facility] Last Admin: 08/31/18 09:13 Dose: 1 ea Pantoprazole Sodium (Protonix Ec Tab) 40 mg PO DAILY [facility] Last Admin: 08/31/18 12:46 Dose: 40 mg Polyethylene Glycol (Miralax) 17 gm PO BID [facility] Last Admin: 08/31/18 18:07 Dose: 17 gm Tramadol HCl (Ultram) 50 mg PO TID PRN PRN Reason: Pain, moderate (4-7) Last Admin: 08/31/18 14:18 Dose: 50 mg - Labs Labs: 08/31/18 06:58 08/31/18 06:58 PT 12.4 SECONDS (9.7-12.2) H 08/25/18 21:43 INR 1.1 08/25/18 21:43 APTT 28 SECONDS (21-34) 08/25/18 21:43 - Constitutional Appears: Non-toxic - Head Exam Head Exam: NORMAL INSPECTION - Eye Exam Eye Exam: Normal appearance - ENT Exam ENT Exam: Mucous Membranes Moist - Neck Exam Neck Exam: Full ROM - Respiratory Exam Respiratory Exam: NORMAL BREATHING PATTERN - Cardiovascular Exam Cardiovascular Exam: REGULAR RHYTHM - GI/Abdominal Exam GI & Abdominal Exam: Normal Bowel Sounds - Rectal Exam Rectal Exam: Deferred - Extremities Exam Extremities Exam: absent: Pedal Edema - Back Exam Back Exam: NORMAL INSPECTION - Neurological Exam Neurological Exam: Alert - Psychiatric Exam Psychiatric exam: Normal Affect - Skin Skin Exam: Normal Color Assessment and Plan (1) Hypertension Assessment & Plan: can titrate meds. blood pressure is better controlled Status: Acute (2) Amaurosis fugax of left eye Status: Acute (3) Chest pain Assessment & Plan: has atypical features. recommend serial cardaic enzymes. if negative medical therapy Status: Acute
[2018-09-01] MEDS: Alum-Mag Hydrox-Simethicone Susp (30 mL) PO SCH ×4 (00:30→18:28)
--- NOTE | 2018-09-01 08:30 | CP.PCM.PN ---
Subjective - Date & Time of Evaluation Date of Evaluation: 09/01/18 Time of Evaluation: 08:05 - Subjective Subjective: Pt e request his inhaler c/o mild SOB. no cough, no n/v No more cP, no edema, no diarrhea, no dysuria; (+) Dizzy/ light headed on /off labs with cr 2.4 Objective - Vital Signs/Intake and Output Vital Signs (last 24 hours): Temp Pulse Resp BP Pulse Ox 97.9 F 61 18 164/88 H 96 09/01/18 07:00 09/01/18 07:00 09/01/18 07:00 09/01/18 07:00 09/01/18 07:00 Intake and Output: 09/01/18 09/01/18 06:59 18:59 Intake Total 480 Balance 480 - Medications Medications: Current Medications Acetaminophen (Tylenol 325mg Tab) 650 mg PO Q6 PRN PRN Reason: Fever >100.4 F Last Admin: 08/29/18 10:41 Dose: 650 mg Al Hydrox/Mg Hydrox/Simethicone (Maalox Plus 30 Ml) 30 ml PO Q6 [facility] Last Admin: 09/01/18 06:56 Dose: 30 ml Albuterol/Ipratropium (Duoneb 3 Mg/0.5 Mg (3 Ml) Ud) 3 ml INH QID [facility] Alprazolam (Xanax) 0.25 mg PO BID [facility] Stop: 09/08/18 10:01 Amlodipine Besylate (Norvasc) 5 mg PO DAILY [facility] Last Admin: 08/31/18 09:17 Dose: 5 mg Aspirin (Aspirin Chewable) 81 mg PO DAILY [facility] Last Admin: 08/31/18 09:12 Dose: 81 mg Clonidine HCl (Catapres) 0.1 mg PO BID [facility] Last Admin: 08/31/18 18:08 Dose: Not Given Clopidogrel Bisulfate (Plavix) 75 mg PO DAILY [facility] Last Admin: 08/31/18 09:12 Dose: 75 mg Famotidine (Pepcid) 20 mg PO DAILY [facility] Lidocaine (Lidoderm) 1 ea TD DAILY [facility] Last Admin: 08/31/18 09:13 Dose: 1 ea Polyethylene Glycol (Miralax) 17 gm PO BID [facility] Last Admin: 08/31/18 18:07 Dose: 17 gm Tramadol HCl (Ultram) 50 mg PO TID PRN PRN Reason: Pain, moderate (4-7) Last Admin: 08/31/18 14:18 Dose: 50 mg - Labs Labs: 08/31/18 06:58 08/31/18 06:58 PT 12.4 SECONDS (9.7-12.2) H 08/25/18 21:43 INR 1.1 08/25/18 21:43 APTT 28 SECONDS (21-34) 08/25/18 21:43 - Constitutional Appears: No Acute Distress - Eye Exam Eye Exam: Normal appearance - ENT Exam ENT Exam: Mucous Membranes Moist - Neck Exam Neck Exam: Full ROM. absent: Lymphadenopathy, Normal Inspection - Respiratory Exam Respiratory Exam: Decreased Breath Sounds, Wheezes. absent: Rales, Rhonchi - Cardiovascular Exam Cardiovascular Exam: REGULAR RHYTHM, +S1, +S2. absent: Gallop, Murmur - GI/Abdominal Exam GI & Abdominal Exam: Soft. absent: Tenderness, Mass - Extremities Exam Extremities Exam: Full ROM, Normal Capillary Refill. absent: Calf Tenderness, Joint Swelling, Pedal Edema Assessment and Plan - Assessment and Plan (Free Text) Assessment: Retinal artery stenosisl ; unc HTN w/ HAMLET Asthma/ Eczema; Adjustment disorder Xanax and restart Singulair/ neb tx Discuss (-) CE and encourage to ambulate Cont meds/ supportive care
[2018-09-01] MEDS: Lidocaine 5% Patch TD SCH (09:59)
[2018-09-01] MEDS ORDERED: Albuterol-Ipratrop 3 mg / 0.5 (3 ml) UD INH SCH (10:00)
[2018-09-01] MEDS: POLYETHYLENE GLYCOL 3350 17 GM/Dose PACKET PO SCH ×2 (10:00→18:28)
--- NOTE | 2018-09-01 13:49 | CP.PCM.PN ---
Subjective - Date & Time of Evaluation Date of Evaluation: 09/01/18 Time of Evaluation: 13:47 - Subjective Subjective: Alert, no new symptoms HTN sl elevated renal function same- has CKD 4- correlates with renal echogenicity Objective - Vital Signs/Intake and Output Vital Signs (last 24 hours): Temp Pulse Resp BP Pulse Ox 97.9 F 61 18 164/88 H 96 09/01/18 07:00 09/01/18 07:00 09/01/18 07:00 09/01/18 07:00 09/01/18 07:00 Intake and Output: 09/01/18 09/01/18 06:59 18:59 Intake Total 480 Balance 480 - Medications Medications: Current Medications Acetaminophen (Tylenol 325mg Tab) 650 mg PO Q6 PRN PRN Reason: Fever >100.4 F Last Admin: 08/29/18 10:41 Dose: 650 mg Al Hydrox/Mg Hydrox/Simethicone (Maalox Plus 30 Ml) 30 ml PO Q6 [facility] Last Admin: 09/01/18 06:56 Dose: 30 ml Albuterol/Ipratropium (Duoneb 3 Mg/0.5 Mg (3 Ml) Ud) 3 ml INH QID [facility] Alprazolam (Xanax) 0.25 mg PO BID [facility] Stop: 09/08/18 10:01 Last Admin: 09/01/18 10:10 Dose: 0.25 mg Amlodipine Besylate (Norvasc) 10 mg PO DAILY [facility] Aspirin (Aspirin Chewable) 81 mg PO DAILY [facility] Last Admin: 09/01/18 10:00 Dose: 81 mg Clonidine HCl (Catapres) 0.1 mg PO BID [facility] Last Admin: 09/01/18 09:59 Dose: 0.1 mg Clopidogrel Bisulfate (Plavix) 75 mg PO DAILY [facility] Last Admin: 09/01/18 09:59 Dose: 75 mg Famotidine (Pepcid) 20 mg PO DAILY [facility] Last Admin: 09/01/18 10:08 Dose: 20 mg Lidocaine (Lidoderm) 1 ea TD DAILY [facility] Last Admin: 09/01/18 09:59 Dose: 1 ea Montelukast Sodium (Singulair) 10 mg PO HS [facility] Polyethylene Glycol (Miralax) 17 gm PO BID [facility] Last Admin: 09/01/18 10:00 Dose: 17 gm Tramadol HCl (Ultram) 50 mg PO TID PRN PRN Reason: Pain, moderate (4-7) Last Admin: 09/01/18 10:04 Dose: 50 mg - Labs Labs: 08/31/18 06:58 08/31/18 06:58 PT 12.4 SECONDS (9.7-12.2) H 08/25/18 21:43 INR 1.1 08/25/18 21:43 APTT 28 SECONDS (21-34) 08/25/18 21:43 - Constitutional Appears: No Acute Distress, Chronically Ill - Head Exam Head Exam: ATRAUMATIC, NORMAL INSPECTION - Eye Exam Eye Exam: EOMI, Normal appearance - Neck Exam Neck Exam: Normal Inspection. absent: Tenderness - Respiratory Exam Respiratory Exam: Clear to Ausculation Bilateral, NORMAL BREATHING PATTERN - Cardiovascular Exam Cardiovascular Exam: REGULAR RHYTHM, +S1 - GI/Abdominal Exam GI & Abdominal Exam: Soft. absent: Tenderness - Extremities Exam Extremities Exam: Normal Inspection. absent: Tenderness - Neurological Exam Neurological Exam: Awake, CN II-XII Intact - Skin Skin Exam: Dry, Warm Assessment and Plan (1) HAMLET (acute kidney injury) Status: Acute (2) Amaurosis fugax of left eye Status: Acute (3) Hypertension Status: Acute - Assessment and Plan (Free Text) Plan: increase amloipine dose will need follow up for CKD Await eval of chest pains
--- NOTE | 2018-09-01 19:04 | CARD ---
APPROVED REPORT Date of service: 08/31/2018 EKG Measurement Heart [id number] <Conclusion> Normal sinus rhythm ST elevation, probably due to early repolarization Borderline ECG
[2018-09-01] MEDS: Albuterol-Ipratrop 3 mg / 0.5 (3 ml) UD INH SCH (19:08)
[2018-09-02] MEDS: Alum-Mag Hydrox-Simethicone Susp (30 mL) PO SCH ×4 (01:05→18:49)
[2018-09-02] MEDS: Albuterol-Ipratrop 3 mg / 0.5 (3 ml) UD INH SCH ×3 (07:35→19:31)
[2018-09-02 07:41] LABS: ALB/GLOB RATIO 1.2 (1.0-2.1); ALBUMIN 4.2 g/dL (3.5-5.0); CALCIUM 9.7 mg/dl (8.6-10.4)
--- NOTE | 2018-09-02 09:35 | CP.PCM.PN ---
Subjective - Date & Time of Evaluation Date of Evaluation: 09/02/18 Time of Evaluation: 09:33 - Subjective Subjective: feels better HTN well controlled now GFR stable at 26 same residual left eye poor vision Objective - Vital Signs/Intake and Output Vital Signs (last 24 hours): Temp Pulse Resp BP Pulse Ox 98.5 F 67 18 126/80 94 L 09/02/18 09:05 09/02/18 09:05 09/02/18 09:05 09/02/18 09:05 09/02/18 09:05 Intake and Output: 09/02/18 09/02/18 06:59 18:59 Intake Total 320 Balance 320 - Medications Medications: Current Medications Acetaminophen (Tylenol 325mg Tab) 650 mg PO Q6 PRN PRN Reason: Fever >100.4 F Last Admin: 08/29/18 10:41 Dose: 650 mg Al Hydrox/Mg Hydrox/Simethicone (Maalox Plus 30 Ml) 30 ml PO Q6 [facility] Last Admin: 09/02/18 06:23 Dose: 30 ml Albuterol/Ipratropium (Duoneb 3 Mg/0.5 Mg (3 Ml) Ud) 3 ml INH RQ6 [facility] Last Admin: 09/01/18 19:08 Dose: 3 ml Alprazolam (Xanax) 0.25 mg PO BID [facility] Stop: 09/08/18 10:01 Last Admin: 09/01/18 21:04 Dose: 0.25 mg Amlodipine Besylate (Norvasc) 10 mg PO DAILY [facility] Aspirin (Aspirin Chewable) 81 mg PO DAILY [facility] Last Admin: 09/01/18 10:00 Dose: 81 mg Clonidine HCl (Catapres) 0.1 mg PO BID [facility] Last Admin: 09/01/18 18:28 Dose: 0.1 mg Clopidogrel Bisulfate (Plavix) 75 mg PO DAILY [facility] Last Admin: 09/01/18 09:59 Dose: 75 mg Famotidine (Pepcid) 20 mg PO DAILY [facility] Last Admin: 09/01/18 10:08 Dose: 20 mg Lidocaine (Lidoderm) 1 ea TD DAILY [facility] Last Admin: 09/01/18 09:59 Dose: 1 ea Montelukast Sodium (Singulair) 10 mg PO HS [facility] Last Admin: 09/01/18 21:04 Dose: 10 mg Polyethylene Glycol (Miralax) 17 gm PO BID [facility] Last Admin: 09/01/18 18:28 Dose: 17 gm Tramadol HCl (Ultram) 50 mg PO TID PRN PRN Reason: Pain, moderate (4-7) Last Admin: 09/01/18 10:04 Dose: 50 mg - Labs Labs: 08/31/18 06:58 09/02/18 07:11 PT 12.4 SECONDS (9.7-12.2) H 08/25/18 21:43 INR 1.1 08/25/18 21:43 APTT 28 SECONDS (21-34) 08/25/18 21:43 - Constitutional Appears: No Acute Distress, Chronically Ill - Head Exam Head Exam: ATRAUMATIC, NORMAL INSPECTION - Eye Exam Eye Exam: EOMI, Normal appearance - Neck Exam Neck Exam: Normal Inspection. absent: Tenderness - Respiratory Exam Respiratory Exam: Clear to Ausculation Bilateral, NORMAL BREATHING PATTERN - Cardiovascular Exam Cardiovascular Exam: REGULAR RHYTHM, +S1 - GI/Abdominal Exam GI & Abdominal Exam: Soft. absent: Tenderness - Extremities Exam Extremities Exam: Normal Inspection. absent: Tenderness - Neurological Exam Neurological Exam: Alert, CN II-XII Intact - Skin Skin Exam: Dry, Warm Assessment and Plan (1) HAMLET (acute kidney injury) Status: Acute (2) Amaurosis fugax of left eye Status: Acute (3) Hypertension Status: Acute (4) CKD stage 4 secondary to hypertension Status: Acute - Assessment and Plan (Free Text) Plan: Same meds Will need follow up for CKD 4- advised patient
[2018-09-02] MEDS: Lidocaine 5% Patch TD SCH (10:29)
[2018-09-02] MEDS: POLYETHYLENE GLYCOL 3350 17 GM/Dose PACKET PO SCH ×2 (10:30→18:49)
--- NOTE | 2018-09-02 18:51 | CP.PCM.PN ---
Subjective - Date & Time of Evaluation Date of Evaluation: 09/02/18 Time of Evaluation: 18:48 - Subjective Subjective: S: Physical therapy not done c/o weakness and dizzyness. Lives alone. Need assistance at home. Eager to return home. Objective - Vital Signs/Intake and Output Vital Signs (last 24 hours): Temp Pulse Resp BP Pulse Ox 97.6 F 86 20 122/71 99 09/02/18 16:00 09/02/18 16:00 09/02/18 16:00 09/02/18 16:00 09/02/18 16:00 Intake and Output: 09/02/18 09/02/18 06:59 18:59 Intake Total 320 450 Balance 320 450 - Medications Medications: Current Medications Acetaminophen (Tylenol 325mg Tab) 650 mg PO Q6 PRN PRN Reason: Fever >100.4 F Last Admin: 08/29/18 10:41 Dose: 650 mg Al Hydrox/Mg Hydrox/Simethicone (Maalox Plus 30 Ml) 30 ml PO Q6 [facility] Last Admin: 09/02/18 13:00 Dose: 30 ml Albuterol/Ipratropium (Duoneb 3 Mg/0.5 Mg (3 Ml) Ud) 3 ml INH RQ6 [facility] Last Admin: 09/02/18 13:25 Dose: 3 ml Alprazolam (Xanax) 0.25 mg PO BID [facility] Stop: 09/08/18 10:01 Last Admin: 09/02/18 10:37 Dose: 0.25 mg Amlodipine Besylate (Norvasc) 10 mg PO DAILY [facility] Last Admin: 09/02/18 10:29 Dose: 10 mg Aspirin (Aspirin Chewable) 81 mg PO DAILY [facility] Last Admin: 09/02/18 10:29 Dose: 81 mg Clonidine HCl (Catapres) 0.1 mg PO BID [facility] Last Admin: 09/02/18 10:36 Dose: 0.1 mg Clopidogrel Bisulfate (Plavix) 75 mg PO DAILY [facility] Last Admin: 09/02/18 10:29 Dose: 75 mg Famotidine (Pepcid) 20 mg PO DAILY [facility] Last Admin: 09/02/18 10:29 Dose: 20 mg Lidocaine (Lidoderm) 1 ea TD DAILY [facility] Last Admin: 09/02/18 10:29 Dose: 1 ea Montelukast Sodium (Singulair) 10 mg PO HS [facility] Last Admin: 09/01/18 21:04 Dose: 10 mg Polyethylene Glycol (Miralax) 17 gm PO BID [facility] Last Admin: 09/02/18 10:30 Dose: 17 gm Tramadol HCl (Ultram) 50 mg PO TID PRN PRN Reason: Pain, moderate (4-7) Last Admin: 09/02/18 10:36 Dose: 50 mg - Labs Labs: 08/31/18 06:58 09/02/18 07:11 PT 12.4 SECONDS (9.7-12.2) H 08/25/18 21:43 INR 1.1 08/25/18 21:43 APTT 28 SECONDS (21-34) 08/25/18 21:43 - Constitutional Appears: No Acute Distress - Head Exam Head Exam: NORMAL INSPECTION - Eye Exam Eye Exam: Normal appearance - Neck Exam Neck Exam: Normal Inspection - Respiratory Exam Respiratory Exam: Clear to Ausculation Bilateral - Cardiovascular Exam Cardiovascular Exam: REGULAR RHYTHM - GI/Abdominal Exam GI & Abdominal Exam: Soft - Rectal Exam Rectal Exam: Deferred - Extremities Exam Extremities Exam: Normal Inspection - Neurological Exam Neurological Exam: Alert Assessment and Plan (1) TIA (transient ischemic attack) Status: Acute (2) Amaurosis fugax of left eye Status: Acute (3) Malignant hypertension Status: Acute (4) CKD (chronic kidney disease) Status: Chronic - Assessment and Plan (Free Text) Assessment: A/P: Continue medications. Continue ohysical therapy. ? in-paatient rehab
[2018-09-03] MEDS: Albuterol-Ipratrop 3 mg / 0.5 (3 ml) UD INH SCH ×4 (01:23→20:05)
--- NOTE | 2018-09-03 07:42 | CP.PCM.PN ---
Subjective - Date & Time of Evaluation Date of Evaluation: 09/03/18 Time of Evaluation: 19:15 - Subjective Subjective: Pt still dizzy; no CP, no SOB, no cough. No n/v, no diarrhea Objective - Vital Signs/Intake and Output Vital Signs (last 24 hours): Temp Pulse Resp BP Pulse Ox 97.7 F 73 20 117/72 100 09/02/18 23:05 09/02/18 23:05 09/02/18 23:05 09/02/18 23:05 09/02/18 23:05 Intake and Output: 09/03/18 09/03/18 06:59 18:59 Intake Total 338 Balance 338 - Medications Medications: Current Medications Acetaminophen (Tylenol 325mg Tab) 650 mg PO Q6 PRN PRN Reason: Fever >100.4 F Last Admin: 08/29/18 10:41 Dose: 650 mg Al Hydrox/Mg Hydrox/Simethicone (Maalox Plus 30 Ml) 30 ml PO Q6 [facility] Last Admin: 09/03/18 00:00 Dose: Not Given Albuterol/Ipratropium (Duoneb 3 Mg/0.5 Mg (3 Ml) Ud) 3 ml INH RQ6 [facility] Last Admin: 09/03/18 01:23 Dose: 3 ml Alprazolam (Xanax) 0.25 mg PO BID [facility] Stop: 09/08/18 10:01 Last Admin: 09/02/18 19:01 Dose: 0.25 mg Amlodipine Besylate (Norvasc) 10 mg PO DAILY [facility] Last Admin: 09/02/18 10:29 Dose: 10 mg Aspirin (Aspirin Chewable) 81 mg PO DAILY [facility] Last Admin: 09/02/18 10:29 Dose: 81 mg Clonidine HCl (Catapres) 0.1 mg PO BID [facility] Last Admin: 09/02/18 18:49 Dose: 0.1 mg Clopidogrel Bisulfate (Plavix) 75 mg PO DAILY [facility] Last Admin: 09/02/18 10:29 Dose: 75 mg Famotidine (Pepcid) 20 mg PO DAILY [facility] Last Admin: 09/02/18 10:29 Dose: 20 mg Lidocaine (Lidoderm) 1 ea TD DAILY [facility] Last Admin: 09/02/18 10:29 Dose: 1 ea Montelukast Sodium (Singulair) 10 mg PO HS [facility] Last Admin: 09/02/18 21:15 Dose: 10 mg Polyethylene Glycol (Miralax) 17 gm PO BID [facility] Last Admin: 09/02/18 18:49 Dose: 17 gm Tramadol HCl (Ultram) 50 mg PO TID PRN PRN Reason: Pain, moderate (4-7) Last Admin: 09/02/18 10:36 Dose: 50 mg - Labs Labs: 08/31/18 06:58 09/02/18 07:11 PT 12.4 SECONDS (9.7-12.2) H 08/25/18 21:43 INR 1.1 08/25/18 21:43 APTT 28 SECONDS (21-34) 08/25/18 21:43 - Constitutional Appears: No Acute Distress - Eye Exam Eye Exam: Normal appearance - ENT Exam ENT Exam: Mucous Membranes Moist - Neck Exam Neck Exam: Full ROM. absent: Lymphadenopathy - Respiratory Exam Respiratory Exam: Decreased Breath Sounds, Wheezes. absent: Rales, Rhonchi - Cardiovascular Exam Cardiovascular Exam: REGULAR RHYTHM, +S1, +S2. absent: Gallop, JVD, Murmur - GI/Abdominal Exam GI & Abdominal Exam: Soft. absent: Tenderness - Extremities Exam Extremities Exam: Full ROM. absent: Joint Swelling, Normal Capillary Refill, Pedal Edema Assessment and Plan - Assessment and Plan (Free Text) Assessment: HTN, CKD w/ Renal Artery stenosis Asthma Exac; Dizziness Cont meds/ supportive care Encourage to ambulate
[2018-09-03] MEDS: POLYETHYLENE GLYCOL 3350 17 GM/Dose PACKET PO SCH ×2 (10:14→18:39)
[2018-09-03] MEDS: Lidocaine 5% Patch TD SCH (10:24)
[2018-09-03] MEDS: Alum-Mag Hydrox-Simethicone Susp (30 mL) PO SCH ×3 (12:15→18:38)
--- NOTE | 2018-09-03 14:33 | CP.PCM.PN ---
Subjective - Date & Time of Evaluation Date of Evaluation: 09/03/18 Time of Evaluation: 14:31 - Subjective Subjective: feels better, c/o weakness HTN controlled same left eye blurriness creat stable at 2.3 Objective - Vital Signs/Intake and Output Vital Signs (last 24 hours): Temp Pulse Resp BP Pulse Ox 98.0 F 72 20 145/82 99 09/03/18 07:00 09/03/18 07:00 09/03/18 07:00 09/03/18 07:00 09/03/18 07:00 Intake and Output: 09/03/18 09/03/18 06:59 18:59 Intake Total 338 Balance 338 - Medications Medications: Current Medications Acetaminophen (Tylenol 325mg Tab) 650 mg PO Q6 PRN PRN Reason: Fever >100.4 F Last Admin: 08/29/18 10:41 Dose: 650 mg Al Hydrox/Mg Hydrox/Simethicone (Maalox Plus 30 Ml) 30 ml PO Q6 [facility] Last Admin: 09/03/18 12:15 Dose: 30 ml Albuterol/Ipratropium (Duoneb 3 Mg/0.5 Mg (3 Ml) Ud) 3 ml INH RQ6 [facility] Last Admin: 09/03/18 13:22 Dose: Not Given Alprazolam (Xanax) 0.25 mg PO BID [facility] Stop: 09/08/18 10:01 Last Admin: 09/03/18 10:27 Dose: 0.25 mg Amlodipine Besylate (Norvasc) 10 mg PO DAILY [facility] Last Admin: 09/03/18 10:25 Dose: 10 mg Aspirin (Aspirin Chewable) 81 mg PO DAILY [facility] Last Admin: 09/03/18 10:25 Dose: 81 mg Clonidine HCl (Catapres) 0.1 mg PO BID [facility] Last Admin: 09/03/18 10:25 Dose: 0.1 mg Clopidogrel Bisulfate (Plavix) 75 mg PO DAILY [facility] Last Admin: 09/03/18 10:25 Dose: 75 mg Famotidine (Pepcid) 20 mg PO DAILY [facility] Last Admin: 09/03/18 10:26 Dose: 20 mg Lidocaine (Lidoderm) 1 ea TD DAILY [facility] Last Admin: 09/03/18 10:24 Dose: 1 ea Montelukast Sodium (Singulair) 10 mg PO HS [facility] Last Admin: 09/02/18 21:15 Dose: 10 mg Polyethylene Glycol (Miralax) 17 gm PO BID [facility] Last Admin: 09/03/18 10:14 Dose: 17 gm Tramadol HCl (Ultram) 50 mg PO TID PRN PRN Reason: Pain, moderate (4-7) Last Admin: 09/03/18 10:21 Dose: 50 mg - Labs Labs: 08/31/18 06:58 09/02/18 07:11 PT 12.4 SECONDS (9.7-12.2) H 08/25/18 21:43 INR 1.1 08/25/18 21:43 APTT 28 SECONDS (21-34) 08/25/18 21:43 - Constitutional Appears: No Acute Distress, Chronically Ill - Head Exam Head Exam: NORMAL INSPECTION, NORMOCEPHALIC - Eye Exam Eye Exam: EOMI, Normal appearance - Neck Exam Neck Exam: Normal Inspection. absent: Tenderness - Respiratory Exam Respiratory Exam: Clear to Ausculation Bilateral, NORMAL BREATHING PATTERN - Cardiovascular Exam Cardiovascular Exam: REGULAR RHYTHM, +S1 - GI/Abdominal Exam GI & Abdominal Exam: Soft. absent: Tenderness - Extremities Exam Extremities Exam: Normal Inspection. absent: Tenderness - Neurological Exam Neurological Exam: Awake, CN II-XII Intact - Skin Skin Exam: Warm. absent: Dry Assessment and Plan (1) HAMLET (acute kidney injury) Status: Acute (2) Amaurosis fugax of left eye Status: Acute (3) Hypertension Status: Acute (4) CKD stage 4 secondary to hypertension Status: Acute - Assessment and Plan (Free Text) Plan: same meds will need renal follow up for CKD
[2018-09-04] MEDS: Alum-Mag Hydrox-Simethicone Susp (30 mL) PO SCH ×2 (00:06→06:56)
[2018-09-04] MEDS: Albuterol-Ipratrop 3 mg / 0.5 (3 ml) UD INH SCH ×4 (02:11→20:32)
--- NOTE | 2018-09-04 07:54 | CP.PCM.PN ---
Subjective - Date & Time of Evaluation Date of Evaluation: 09/04/18 Time of Evaluation: 07:35 - Subjective Subjective: Pt (+) dizzy - slight better, no CP, no SOB, (+) cough is decrease, no edema Non/v, no BURR; (+) blurred vision/ blind on left eye Objective - Vital Signs/Intake and Output Vital Signs (last 24 hours): Temp Pulse Resp BP Pulse Ox 97.8 F 82 20 121/79 98 09/03/18 23:05 09/03/18 23:05 09/03/18 23:05 09/03/18 23:05 09/03/18 23:05 - Medications Medications: Current Medications Acetaminophen (Tylenol 325mg Tab) 650 mg PO Q6 PRN PRN Reason: Fever >100.4 F Last Admin: 08/29/18 10:41 Dose: 650 mg Al Hydrox/Mg Hydrox/Simethicone (Maalox Plus 30 Ml) 30 ml PO Q6 [facility] Last Admin: 09/04/18 06:56 Dose: 30 ml Albuterol/Ipratropium (Duoneb 3 Mg/0.5 Mg (3 Ml) Ud) 3 ml INH RQ6 [facility] Last Admin: 09/04/18 02:11 Dose: 3 ml Alprazolam (Xanax) 0.25 mg PO BID [facility] Stop: 09/08/18 10:01 Last Admin: 09/03/18 22:17 Dose: 0.25 mg Amlodipine Besylate (Norvasc) 10 mg PO DAILY [facility] Last Admin: 09/03/18 10:25 Dose: 10 mg Aspirin (Aspirin Chewable) 81 mg PO DAILY [facility] Last Admin: 09/03/18 10:25 Dose: 81 mg Clonidine HCl (Catapres) 0.1 mg PO BID [facility] Last Admin: 09/03/18 18:39 Dose: 0.1 mg Clopidogrel Bisulfate (Plavix) 75 mg PO DAILY [facility] Last Admin: 09/03/18 10:25 Dose: 75 mg Famotidine (Pepcid) 20 mg PO DAILY [facility] Last Admin: 09/03/18 10:26 Dose: 20 mg Lidocaine (Lidoderm) 1 ea TD DAILY [facility] Last Admin: 09/03/18 10:24 Dose: 1 ea Montelukast Sodium (Singulair) 10 mg PO HS [facility] Last Admin: 09/03/18 22:00 Dose: 10 mg Polyethylene Glycol (Miralax) 17 gm PO BID [facility] Last Admin: 09/03/18 18:39 Dose: 17 gm Tramadol HCl (Ultram) 50 mg PO TID PRN PRN Reason: Pain, moderate (4-7) Last Admin: 09/03/18 10:21 Dose: 50 mg - Labs Labs: 08/31/18 06:58 09/02/18 07:11 PT 12.4 SECONDS (9.7-12.2) H 08/25/18 21:43 INR 1.1 08/25/18 21:43 APTT 28 SECONDS (21-34) 08/25/18 21:43 - Constitutional Appears: No Acute Distress - Eye Exam Eye Exam: Normal appearance - ENT Exam ENT Exam: Mucous Membranes Moist - Respiratory Exam Respiratory Exam: Clear to Ausculation Bilateral. absent: Decreased Breath Sounds, Rales, Rhonchi, Wheezes, Respiratory Distress - Cardiovascular Exam Cardiovascular Exam: REGULAR RHYTHM, +S1, +S2. absent: Gallop, Irregular Rhythm, JVD, Murmur - GI/Abdominal Exam GI & Abdominal Exam: Soft, Normal Bowel Sounds. absent: Tenderness, Mass - Extremities Exam Extremities Exam: Full ROM, Normal Capillary Refill. absent: Calf Tenderness, Joint Swelling, Pedal Edema Assessment and Plan - Assessment and Plan (Free Text) Assessment: Renal artery stenosis; HTN w/ CKD Gait dis/ dizziness Cont meds/ supportive care
--- NOTE | 2018-09-04 09:54 | CP.PCM.PN ---
Subjective - Date & Time of Evaluation Date of Evaluation: 09/04/18 Time of Evaluation: 09:51 - Subjective Subjective: Notes reviewed No overnight events reported OOB in chair Appetite improved NO pain Tolerating all meds No n/v Vision unchanged No cp or palp 10 point ros negative other than stated above Objective - Vital Signs/Intake and Output Vital Signs (last 24 hours): Temp Pulse Resp BP Pulse Ox 98.5 F 84 20 128/85 96 09/04/18 07:00 09/04/18 07:00 09/04/18 07:00 09/04/18 07:00 09/04/18 07:00 - Medications Medications: Current Medications Albuterol/Ipratropium (Duoneb 3 Mg/0.5 Mg (3 Ml) Ud) 3 ml INH RQ6 [facility] Last Admin: 09/04/18 02:11 Dose: 3 ml Alprazolam (Xanax) 0.25 mg PO BID [facility] Stop: 09/08/18 10:01 Last Admin: 09/03/18 22:17 Dose: 0.25 mg Amlodipine Besylate (Norvasc) 10 mg PO DAILY [facility] Last Admin: 09/03/18 10:25 Dose: 10 mg Aspirin (Aspirin Chewable) 81 mg PO DAILY [facility] Last Admin: 09/03/18 10:25 Dose: 81 mg Clonidine HCl (Catapres) 0.1 mg PO BID [facility] Last Admin: 09/03/18 18:39 Dose: 0.1 mg Clopidogrel Bisulfate (Plavix) 75 mg PO DAILY [facility] Last Admin: 09/03/18 10:25 Dose: 75 mg Famotidine (Pepcid) 20 mg PO DAILY [facility] Last Admin: 09/03/18 10:26 Dose: 20 mg Lidocaine (Lidoderm) 1 ea TD DAILY [facility] Last Admin: 09/03/18 10:24 Dose: 1 ea Montelukast Sodium (Singulair) 10 mg PO HS [facility] Last Admin: 09/03/18 22:00 Dose: 10 mg Tramadol HCl (Ultram) 50 mg PO TID PRN PRN Reason: Pain, moderate (4-7) Last Admin: 09/03/18 10:21 Dose: 50 mg - Labs Labs: 08/31/18 06:58 09/02/18 07:11 PT 12.4 SECONDS (9.7-12.2) H 08/25/18 21:43 INR 1.1 08/25/18 21:43 APTT 28 SECONDS (21-34) 08/25/18 21:43 - Constitutional Appears: Well, Non-toxic, No Acute Distress - Eye Exam Eye Exam: EOMI, Normal appearance - ENT Exam ENT Exam: Mucous Membranes Moist, Normal Oropharynx - Respiratory Exam Respiratory Exam: Clear to Ausculation Bilateral. absent: Rales, Rhonchi - Cardiovascular Exam Cardiovascular Exam: +S1, +S2. absent: Rubs - GI/Abdominal Exam GI & Abdominal Exam: Soft, Normal Bowel Sounds - Extremities Exam Extremities Exam: absent: Joint Swelling, Pedal Edema - Neurological Exam Neurological Exam: Alert, Awake - Psychiatric Exam Psychiatric exam: Normal Affect, Normal Mood - Skin Skin Exam: Dry, Intact Assessment and Plan (1) HAMLET (acute kidney injury) Status: Acute (2) Amaurosis fugax of left eye Status: Acute (3) CKD stage 4 secondary to hypertension Status: Acute (4) Hypertension Status: Acute - Assessment and Plan (Free Text) Assessment: Renal function stable / [id number] Repeat chemistry for electrolytes BP controlled, continue current meds ?PT eval and treatment Diet as tolerated Stable renal brito
[2018-09-04] MEDS: Lidocaine 5% Patch TD SCH (10:46)
[2018-09-05] MEDS: Albuterol-Ipratrop 3 mg / 0.5 (3 ml) UD INH SCH ×4 (01:33→19:16)
[2018-09-05] MEDS: Lidocaine 5% Patch TD SCH (09:31)
[2018-09-05 19:28] VITALS: RESP 20
[2018-09-06] MEDS: Albuterol-Ipratrop 3 mg / 0.5 (3 ml) UD INH SCH ×4 (01:20→19:58)
--- NOTE | 2018-09-06 08:15 | CP.PCM.PN ---
Subjective - Date & Time of Evaluation Date of Evaluation: 09/06/18 Time of Evaluation: 08:05 - Subjective Subjective: Pt has inc cough; Mucus is whitish. Also acid reflux No CP, no SOB, a little dizzy at times. No n/v, no diarrhea, no dysuria,(+) freq Objective - Vital Signs/Intake and Output Vital Signs (last 24 hours): Temp Pulse Resp BP Pulse Ox 97.8 F 70 20 128/80 100 09/06/18 07:00 09/06/18 07:00 09/06/18 07:00 09/06/18 07:00 09/06/18 07:00 Intake and Output: 09/06/18 09/06/18 06:59 18:59 Intake Total 380 Balance 380 - Medications Medications: Current Medications Albuterol/Ipratropium (Duoneb 3 Mg/0.5 Mg (3 Ml) Ud) 3 ml INH RQ6 [facility] Last Admin: 09/06/18 01:20 Dose: Not Given Alprazolam (Xanax) 0.25 mg PO BID [facility] Stop: 09/08/18 10:01 Last Admin: 09/05/18 17:37 Dose: Not Given Amlodipine Besylate (Norvasc) 10 mg PO DAILY [facility] Last Admin: 09/05/18 09:30 Dose: 10 mg Aspirin (Aspirin Chewable) 81 mg PO DAILY [facility] Last Admin: 09/05/18 09:30 Dose: 81 mg Clonidine HCl (Catapres) 0.1 mg PO BID [facility] Last Admin: 09/05/18 17:36 Dose: 0.1 mg Clopidogrel Bisulfate (Plavix) 75 mg PO DAILY [facility] Last Admin: 09/05/18 09:30 Dose: 75 mg Famotidine (Pepcid) 20 mg PO DAILY [facility] Last Admin: 09/06/18 07:37 Dose: 20 mg Lidocaine (Lidoderm) 1 ea TD DAILY [facility] Last Admin: 09/05/18 09:31 Dose: 1 ea Montelukast Sodium (Singulair) 10 mg PO HS [facility] Last Admin: 09/05/18 21:38 Dose: 10 mg Tramadol HCl (Ultram) 50 mg PO TID PRN PRN Reason: Pain, moderate (4-7) Last Admin: 09/05/18 09:31 Dose: 50 mg - Labs Labs: 08/31/18 06:58 09/02/18 07:11 PT 12.4 SECONDS (9.7-12.2) H 08/25/18 21:43 INR 1.1 08/25/18 21:43 APTT 28 SECONDS (21-34) 08/25/18 21:43 - Constitutional Appears: No Acute Distress - Eye Exam Eye Exam: Normal appearance - ENT Exam ENT Exam: Mucous Membranes Moist - Neck Exam Neck Exam: Full ROM. absent: Lymphadenopathy, Normal Inspection - Respiratory Exam Respiratory Exam: Decreased Breath Sounds, Wheezes. absent: Rales, Rhonchi - Cardiovascular Exam Cardiovascular Exam: REGULAR RHYTHM, +S1, +S2, Murmur. absent: Gallop, JVD - GI/Abdominal Exam GI & Abdominal Exam: Soft. absent: Tenderness, Mass - Extremities Exam Extremities Exam: Full ROM, Normal Capillary Refill. absent: Calf Tenderness, Joint Swelling, Pedal Edema Assessment and Plan - Assessment and Plan (Free Text) Assessment: Renal artery stenosis; anxiety disorder Asthma, Exac HTN w/ CKD Add Advair w/ Singulair and Doaneb Change to Protonix Await for Mrs Field to discharge
[2018-09-06] MEDS: Lidocaine 5% Patch TD SCH (10:18)
[2018-09-06 11:38] LABS: BASO % 0.7 % (0.0-2.0); EOS # 0.2 K/uL (0.0-0.7); EOS % 4.3 % (0.0-4.0); LYMPH # 0.7 K/uL (1.0-4.3); LYMPH % 13.7 % (20.0-40.0); MEAN CELL VOLUME 90.1 fL (81.0-99.0); MEAN CORPUSCULAR HEMOGLOBIN 29.8 pg (27.0-31.0); MONO # 0.4 K/uL (0.0-0.8); MONO % 8.2 % (0.0-10.0); NEUT # 3.5 K/uL (1.8-7.0); NEUT % 73.1 % (50.0-75.0); RBC 3.7 Mil/uL (3.80-5.20); RED CELL DISTRIBUTION WIDTH 14.2 % (11.5-14.5); WHITE BLOOD COUNT 4.8 K/uL (4.8-10.8)
--- NOTE | 2018-09-06 11:59 | CP.PCM.PN ---
Subjective - Date & Time of Evaluation Date of Evaluation: 09/06/18 Time of Evaluation: 11:56 - Subjective Subjective: alert, no new complaint left eye poor vision same HTN well controlled no new chemistries; renal function has been stable- CKD 4 Objective - Vital Signs/Intake and Output Vital Signs (last 24 hours): Temp Pulse Resp BP Pulse Ox 97.8 F 70 20 128/80 100 09/06/18 07:00 09/06/18 07:00 09/06/18 07:00 09/06/18 07:00 09/06/18 07:00 Intake and Output: 09/06/18 09/06/18 06:59 18:59 Intake Total 380 Balance 380 - Medications Medications: Current Medications Albuterol/Ipratropium (Duoneb 3 Mg/0.5 Mg (3 Ml) Ud) 3 ml INH RQ6 [facility] Last Admin: 09/06/18 08:26 Dose: 3 ml Alprazolam (Xanax) 0.25 mg PO BID [facility] Stop: 09/08/18 10:01 Last Admin: 09/06/18 10:17 Dose: Not Given Amlodipine Besylate (Norvasc) 10 mg PO DAILY [facility] Last Admin: 09/06/18 10:18 Dose: 10 mg Aspirin (Aspirin Chewable) 81 mg PO DAILY [facility] Last Admin: 09/06/18 10:20 Dose: 81 mg Clonidine HCl (Catapres) 0.1 mg PO BID [facility] Last Admin: 09/06/18 10:26 Dose: 0.1 mg Clopidogrel Bisulfate (Plavix) 75 mg PO DAILY [facility] Last Admin: 09/06/18 10:18 Dose: 75 mg Famotidine (Pepcid) 20 mg PO DAILY [facility] Last Admin: 09/06/18 10:22 Dose: Not Given Fluticasone/Vilanterol (Breo Ellipta 200-25 Mcg Inh) 1 puff INH RQD [facility] Lidocaine (Lidoderm) 1 ea TD DAILY [facility] Last Admin: 09/06/18 10:18 Dose: 1 ea Montelukast Sodium (Singulair) 10 mg PO HS [facility] Last Admin: 09/05/18 21:38 Dose: 10 mg Tramadol HCl (Ultram) 50 mg PO TID PRN PRN Reason: Pain, moderate (4-7) Last Admin: 03/25/19 10:20 Dose: 50 mg - Labs Labs: 09/06/18 11:22 09/02/18 07:11 PT 12.4 SECONDS (9.7-12.2) H 08/25/18 21:43 INR 1.1 08/25/18 21:43 APTT 28 SECONDS (21-34) 08/25/18 21:43 - Constitutional Appears: No Acute Distress, Chronically Ill - Head Exam Head Exam: ATRAUMATIC, NORMAL INSPECTION - Eye Exam Eye Exam: EOMI, Normal appearance - Neck Exam Neck Exam: Normal Inspection. absent: Tenderness - Respiratory Exam Respiratory Exam: Clear to Ausculation Bilateral, NORMAL BREATHING PATTERN - Cardiovascular Exam Cardiovascular Exam: REGULAR RHYTHM, +S1 - GI/Abdominal Exam GI & Abdominal Exam: Soft. absent: Tenderness - Extremities Exam Extremities Exam: Normal Inspection. absent: Tenderness - Neurological Exam Neurological Exam: Awake, CN II-XII Intact - Skin Skin Exam: Dry, Warm Assessment and Plan (1) HAMLET (acute kidney injury) Status: Acute (2) Amaurosis fugax of left eye Status: Acute (3) Hypertension Status: Acute (4) CKD stage 4 secondary to hypertension Status: Acute - Assessment and Plan (Free Text) Plan: same BP meds Needs outpt follow up for CKD care
[2018-09-06 12:04] LABS: ALB/GLOB RATIO 1.1 (1.0-2.1); ALBUMIN 3.8 g/dL (3.5-5.0); CALCIUM 9.4 mg/dl (8.6-10.4)
[2018-09-07] MEDS: Albuterol-Ipratrop 3 mg / 0.5 (3 ml) UD INH SCH ×3 (01:18→13:11)
[2018-09-07] MEDS ORDERED: Fluticasone-Vilanterol 200/25mcg Diskus INH SCH (08:00)
--- NOTE | 2018-09-07 08:27 | CP.PCM.PN ---
Subjective - Date & Time of Evaluation Date of Evaluation: 09/07/18 Time of Evaluation: 08:30 - Subjective Subjective: Pt feels well; for subacute as per Mrs. Tianna Salas No CP, xander dec cough, no edma, no SOB, no n/v, no diarrhea Objective - Vital Signs/Intake and Output Vital Signs (last 24 hours): Temp Pulse Resp BP Pulse Ox 97.5 F L 70 20 106/69 99 09/06/18 23:05 09/06/18 23:05 09/06/18 23:05 09/06/18 23:05 09/06/18 23:05 Intake and Output: 09/07/18 09/07/18 06:59 18:59 Intake Total 360 Balance 360 - Medications Medications: Current Medications Albuterol/Ipratropium (Duoneb 3 Mg/0.5 Mg (3 Ml) Ud) 3 ml INH RQ6 [facility] Last Admin: 09/07/18 01:18 Dose: 3 ml Alprazolam (Xanax) 0.25 mg PO BID [facility] Stop: 09/08/18 10:01 Last Admin: 09/06/18 17:17 Dose: 0.25 mg Amlodipine Besylate (Norvasc) 10 mg PO DAILY [facility] Last Admin: 09/06/18 10:18 Dose: 10 mg Aspirin (Aspirin Chewable) 81 mg PO DAILY [facility] Last Admin: 09/06/18 10:20 Dose: 81 mg Clonidine HCl (Catapres) 0.1 mg PO BID [facility] Last Admin: 09/06/18 17:17 Dose: 0.1 mg Clopidogrel Bisulfate (Plavix) 75 mg PO DAILY [facility] Last Admin: 09/06/18 10:18 Dose: 75 mg Famotidine (Pepcid) 20 mg PO DAILY [facility] Last Admin: 09/06/18 10:22 Dose: Not Given Fluticasone/Vilanterol (Breo Ellipta 200-25 Mcg Inh) 1 puff INH RQD [facility] Lidocaine (Lidoderm) 1 ea TD DAILY [facility] Last Admin: 09/06/18 10:18 Dose: 1 ea Montelukast Sodium (Singulair) 10 mg PO HS [facility] Last Admin: 09/06/18 21:03 Dose: 10 mg Tramadol HCl (Ultram) 50 mg PO TID PRN PRN Reason: Pain, moderate (4-7) Last Admin: 09/06/18 10:20 Dose: 50 mg - Labs Labs: 09/06/18 11:22 09/06/18 11:22 PT 12.4 SECONDS (9.7-12.2) H 08/25/18 21:43 INR 1.1 08/25/18 21:43 APTT 28 SECONDS (21-34) 08/25/18 21:43 - Constitutional Appears: No Acute Distress - Eye Exam Eye Exam: Normal appearance - ENT Exam ENT Exam: Mucous Membranes Moist - Neck Exam Neck Exam: Full ROM. absent: Lymphadenopathy - Respiratory Exam Respiratory Exam: Clear to Ausculation Bilateral. absent: Rales, Rhonchi, Wheezes - GI/Abdominal Exam GI & Abdominal Exam: Soft. absent: Tenderness, Mass - Extremities Exam Extremities Exam: Full ROM, Normal Capillary Refill. absent: Calf Tenderness, Joint Swelling, Pedal Edema - Skin Skin Exam: Dry, Intact, Rash Assessment and Plan - Assessment and Plan (Free Text) Assessment: Asthma, conrolled Retinal artery stenosis HTN, HAMLET Cont meds For subacute
[2018-09-07 09:18] VITALS: BP 145/81; PULSE 78; TEMP 98.3; O2SAT 98
--- NOTE | 2018-09-07 09:26 | CP.PCM.PN ---
Subjective - Date & Time of Evaluation Date of Evaluation: 09/07/18 Time of Evaluation: 09:20 - Subjective Subjective: afebrile bp 145/81 earlier chems ok creatinine 2.9 comfortable in bed ROS no headache no chest pain no sob no n,v,d no dysuria hematuria Objective - Vital Signs/Intake and Output Vital Signs (last 24 hours): Temp Pulse Resp BP Pulse Ox 98.3 F 78 20 145/81 98 09/07/18 07:30 09/07/18 07:30 09/07/18 07:30 09/07/18 07:30 09/07/18 07:30 Intake and Output: 09/07/18 09/07/18 06:59 18:59 Intake Total 360 Balance 360 - Medications Medications: Current Medications Albuterol/Ipratropium (Duoneb 3 Mg/0.5 Mg (3 Ml) Ud) 3 ml INH RQ6 [facility] Last Admin: 09/07/18 08:25 Dose: 3 ml Alprazolam (Xanax) 0.25 mg PO BID [facility] Stop: 09/08/18 10:01 Last Admin: 09/06/18 17:17 Dose: 0.25 mg Amlodipine Besylate (Norvasc) 10 mg PO DAILY [facility] Last Admin: 09/06/18 10:18 Dose: 10 mg Aspirin (Aspirin Chewable) 81 mg PO DAILY [facility] Last Admin: 09/06/18 10:20 Dose: 81 mg Clonidine HCl (Catapres) 0.1 mg PO BID [facility] Last Admin: 09/06/18 17:17 Dose: 0.1 mg Clopidogrel Bisulfate (Plavix) 75 mg PO DAILY [facility] Last Admin: 09/06/18 10:18 Dose: 75 mg Famotidine (Pepcid) 20 mg PO DAILY [facility] Last Admin: 09/06/18 10:22 Dose: Not Given Fluticasone/Vilanterol (Breo Ellipta 200-25 Mcg Inh) 1 puff INH RQD [facility] Last Admin: 09/07/18 08:25 Dose: 1 puff Lidocaine (Lidoderm) 1 ea TD DAILY [facility] Last Admin: 09/06/18 10:18 Dose: 1 ea Montelukast Sodium (Singulair) 10 mg PO HS [facility] Last Admin: 09/06/18 21:03 Dose: 10 mg Tramadol HCl (Ultram) 50 mg PO TID PRN PRN Reason: Pain, moderate (4-7) Last Admin: 09/06/18 10:20 Dose: 50 mg - Labs Labs: 09/06/18 11:22 09/06/18 11:22 PT 12.4 SECONDS (9.7-12.2) H 08/25/18 21:43 INR 1.1 08/25/18 21:43 APTT 28 SECONDS (21-34) 08/25/18 21:43 - Constitutional Appears: No Acute Distress - ENT Exam ENT Exam: Mucous Membranes Moist - Respiratory Exam Respiratory Exam: Clear to Ausculation Bilateral, NORMAL BREATHING PATTERN - Cardiovascular Exam Cardiovascular Exam: REGULAR RHYTHM - GI/Abdominal Exam GI & Abdominal Exam: Soft. absent: Distended, Tenderness - Back Exam Back Exam: absent: CVA tenderness (L), CVA tenderness (R) - Neurological Exam Neurological Exam: Awake - Psychiatric Exam Psychiatric exam: Normal Affect, Normal Mood - Skin Skin Exam: Dry, Warm Assessment and Plan (1) HAMLET (acute kidney injury) Status: Acute (2) Amaurosis fugax of left eye Status: Acute (3) Malignant hypertension Status: Acute (4) CKD (chronic kidney disease) Status: Chronic - Assessment and Plan (Free Text) Plan: follow chems closely maintain present antihypertensive regimen
[2018-09-07] MEDS: Lidocaine 5% Patch TD SCH (10:18)
--- NOTE | 2018-09-18 07:49 | CP.PCM.DIS ---
Provider - Provider Date of Admission: 08/25/18 22:57 CC: L eye 68 y/o female with HTN, CKD, Asthma and Eczema. Patient had sudden loss of vision on left eye. In ER BP was high and has neuro consult. Sge was advised admission. Attending physician: Gera Larson MD Consults: 08/25/18 21:38 Stroke Team Consult Stat Comment: Consulting Provider: Neurohospitalist Consulting Physician: NEUROHOSP Neurohospitalist for Consult: Tato Delacruz Neurohospitalist for Consult: Johan Monterroso Reason for Consult: code stroke 08/25/18 23:01 Neurology Consult Stat Comment: Consulting Provider: Tato Delacruz Consulting Physician: Tato Delacruz Reason for Consult: left medial hemianopsia 08/26/18 01:30 Cardiology Consult Stat Comment: Consulting Provider: Jono Aldrich Consulting Physician: Jono Aldrich Reason for Consult: uncontrolled blood pressure 08/26/18 08:00 Nephrology Consult Routine Comment: Consulting Provider: Lex Murphy Consulting Physician: Lex Murphy Reason for Consult: uncontrolled high blood pressure 08/27/18 15:04 Physician Consult Routine Comment: Consulting Provider: Tejas Douglas Consulting Physician: Tejas Douglas Reason for Consult: blurred vision Time Spent in preparation of Discharge (in minutes): 25 Hospital Course - Lab Results Lab Results: Most Recent Lab Values WBC 4.8 K/uL (4.8-10.8) 09/06/18 11:22 RBC 3.70 Mil/uL (3.80-5.20) L 09/06/18 11:22 Hgb 11.0 g/dL (11.0-16.0) 09/06/18 11:22 Hct 33.4 % (34.0-47.0) L 09/06/18 11:22 MCV 90.1 fL (81.0-99.0) 09/06/18 11:22 MCH 29.8 pg (27.0-31.0) 09/06/18 11:22 MCHC 33.0 g/dL (33.0-37.0) 09/06/18 11:22 RDW 14.2 % (11.5-14.5) 09/06/18 11:22 Plt Count 128 K/uL (130-400) L D 09/06/18 11:22 MPV 12.0 fL (7.2-11.7) H 09/06/18 11:22 Neut % (Auto) 73.1 % (50.0-75.0) 09/06/18 11:22 Lymph % (Auto) 13.7 % (20.0-40.0) L 09/06/18 11:22 Price % (Auto) 8.2 % (0.0-10.0) 09/06/18 11:22 Eos % (Auto) 4.3 % (0.0-4.0) H 09/06/18 11:22 Baso % (Auto) 0.7 % (0.0-2.0) 09/06/18 11:22 Neut # (Auto) 3.5 K/uL (1.8-7.0) 09/06/18 11:22 Lymph # (Auto) 0.7 K/uL (1.0-4.3) L 09/06/18 11:22 Price # (Auto) 0.4 K/uL (0.0-0.8) 09/06/18 11:22 Eos # (Auto) 0.2 K/uL (0.0-0.7) 09/06/18 11:22 Baso # (Auto) 0.0 K/uL (0.0-0.2) 09/06/18 11:22 Differential Comment 09/06/18 11:22 PT 12.4 SECONDS (9.7-12.2) H 08/25/18 21:43 INR 1.1 08/25/18 21:43 APTT 28 SECONDS (21-34) 08/25/18 21:43 Sodium 133 mmol/L (132-148) 09/06/18 11:22 Potassium 4.6 mmol/L (3.6-5.2) 09/06/18 11:22 Chloride 94 mmol/L (98-107) L 09/06/18 11:22 Carbon Dioxide 28 mmol/L (22-30) 09/06/18 11:22 Anion Gap 15 (10-20) 09/06/18 11:22 BUN 47 mg/dL (7-17) H 09/06/18 11:22 Creatinine 2.9 mg/dL (0.7-1.2) H 09/06/18 11:22 Est GFR ( Amer) 20 09/06/18 11:22 Est GFR (Non-Af Amer) 16 09/06/18 11:22 POC Glucose (mg/dL) 115 mg/dL (65-110) H 09/03/18 11:03 Random Glucose 114 mg/dL (65-105) H D 09/06/18 11:22 Hemoglobin A1c 5.7 % (4.2-6.5) 08/25/18 21:43 Calcium 9.4 mg/dl (8.6-10.4) 09/06/18 11:22 Phosphorus 3.8 mg/dL (2.5-4.5) 09/02/18 07:11 Magnesium 2.3 mg/dL (1.6-2.3) 08/30/18 12:11 % Saturation 26 (20-55) 08/30/18 14:18 Ferritin 210.0 ng/mL 08/30/18 14:18 Total Bilirubin 0.9 mg/dL (0.2-1.3) 09/06/18 11:22 AST 39 U/L (14-36) H 09/06/18 11:22 ALT 15 U/L (9-52) 09/06/18 11:22 Alkaline Phosphatase 121 U/L (38-126) 09/06/18 11:22 Total Creatine Kinase 43 U/L (30-135) 08/31/18 16:01 CK-MB (Mass) 0.29 ng/mL (0.0-3.38) 08/31/18 16:01 Troponin I 0.0390 ng/mL (0.00-0.120) 09/01/18 07:13 Total Protein 7.4 g/dL (6.3-8.3) 09/06/18 11:22 Albumin 3.8 g/dL (3.5-5.0) 09/06/18 11:22 Globulin 3.5 gm/dL (2.2-3.9) 09/06/18 11:22 Albumin/Globulin Ratio 1.1 (1.0-2.1) 09/06/18 11:22 Triglycerides 177 mg/dL (0-149) H D 08/30/18 12:11 Cholesterol 166 mg/dL (0-199) 08/30/18 12:11 LDL Cholesterol Direct 64 mg/dL (0-129) 08/30/18 12:11 HDL Cholesterol 46 mg/dL (30-70) 08/30/18 12:11 Renin 0.39 ng/mL/h (0.25-5.82) 08/27/18 06:42 Aldosterone 3 ng/dL 08/27/18 06:42 Aldosterone/Renin Ratio 7.7 Ratio (0.9-28.9) 08/27/18 06:42 PTH Intact Whole Molec 49 pg/mL (14-64) 09/02/18 07:11 Epineph & Norepi Total 16 mcg/g cr (9-74) 08/26/18 18:05 Plasma Metanephrine 27 pg/mL (<=57) 08/26/18 13:59 Plasma Normetanephrine 79 pg/mL (<=148) 08/26/18 13:59 Plas Total Metaneph 106 pg/mL (<=205) 08/26/18 13:59 Urine Color Pilar (YELLOW) 08/28/18 00:22 Urine Clarity Hazy (Clear) 08/28/18 00:22 Urine pH 5.0 (5.0-8.0) 08/28/18 00:22 Ur Specific [place] 1.024 (1.003-1.030) 08/28/18 00:22 Urine Protein 2+ mg/dL (NEGATIVE) H 08/28/18 00:22 Urine Glucose (UA) Normal mg/dL (Normal) 08/28/18 00:22 Urine Ketones Negative mg/dL (NEGATIVE) 08/28/18 00:22 Urine Blood 1+ (NEGATIVE) H 08/28/18 00:22 Urine Nitrate Negative (NEGATIVE) 08/28/18 00:22 Urine Bilirubin Negative (NEGATIVE) 08/28/18 00:22 Urine Urobilinogen 2.0 mg/dL (0.2-1.0) H 08/28/18 00:22 Ur Leukocyte Esterase 3+ Zuly/uL (Negative) H 08/28/18 00:22 Urine WBC (Auto) 100 /hpf (0-5) H 08/28/18 00:22 Urine RBC (Auto) 193 /hpf (0-3) H 08/28/18 00:22 Ur Squamous Epith Cells 14 /hpf (0-5) H 08/28/18 00:22 Urine Bacteria Many (<OCC) H 08/28/18 00:22 Hyaline Casts 11-20 /lpf (0-2) H 08/28/18 00:22 Granular Casts (Auto) 6 /lpf (0-1) 08/28/18 00:22 Ur Random Creatinine 130 mg/dL (20-275) 08/26/18 18:05 Ur Random Sodium 122 mmol/L 08/26/18 18:01 Ur Random Dopamine 165 mcg/g cr (40-390) 08/26/18 18:05 Ur Random Epinephrine 3 mcg/g cr (2-16) 08/26/18 18:05 U Random Norepinephrine 13 mcg/g cr (7-65) 08/26/18 18:05 Ur Total Protein 24 Hr 94 mg/24 h (<150) 09/02/18 08:14 VMA/Creatinine Ratio 3.1 mg/g creat (1.1-4.1) 08/26/18 18:05 Urine Total Volume TEST NOT PERFORMED 08/27/18 18:00 Urine Metanephrine TNP 08/27/18 18:00 U Normetanephrine TNP 08/27/18 18:00 U Tot Metanephrine 24h TNP 08/27/18 18:00 Blood Type O POSITIVE 08/25/18 21:43 Antibody Screen Negative 08/25/18 21:43 - Hospital Course Hospital Course: Pt admitted for possible TIA (Amaurosis Fugax and HTN urgency. Patient however had complicated course c/o had episode of chest pain. Also had Asthma, exac and increase Crea. She was referred to Cardio, Neurology and Renal service, Meds was adjusted/ supportive care given. Pt BP was much better control and she wwas sent to Rehab Discharge Exam - Head Exam Head Exam: ATRAUMATIC, NORMAL INSPECTION - Eye Exam Eye Exam: Normal appearance - ENT Exam ENT Exam: Mucous Membranes Moist - Neck Exam Neck exam: Full Rom - Respiratory Exam Respiratory Exam: Decreased Breath Sounds. absent: Rhonchi, Wheezes, Respiratory Distress - Cardiovascular Exam Cardiovascular Exam: REGULAR RHYTHM, +S1, +S2. absent: Gallop, JVD - GI/Abdominal Exam GI & Abdominal Exam: Soft. absent: Tenderness - Extremities Exam Extremities exam: full ROM, normal capillary refill, pedal pulses present Discharge Plan - Follow Up Plan Condition: STABLE Disposition: REHAB FACILITY/REHAB UNIT Instructions: High Blood Pressure (DC), Transient Ischemic Attack (DC), Low Salt Diet, Renal Failure Diet (DC) Referrals: Mehran Larson MD [Staff Provider] -
== END 2018-09-07 15:35 | DRG 123 ==
LOC: C.ER 21:18 → C.9E 22:57 → C.6T 23:46
PROVIDERS: ADMIT Internal Medicine; ATTEND Internal Medicine
DX: G45.3 Amaurosis fugax (principal); N18.4 Chronic kidney disease, stage 4 (severe); N17.9 Acute kidney failure, unspecified; J45.901 Unspecified asthma with (acute) exacerbation; I12.9 Hypertensive chronic kidney disease with stage 1 through stage 4 chronic kidney disease, or unspecified chronic kidney disease; I16.0 Hypertensive urgency; E78.5 Hyperlipidemia, unspecified; F43.22 Adjustment disorder with anxiety; H35.039 Hypertensive retinopathy, unspecified eye; I70.1 Atherosclerosis of renal artery; I77.1 Stricture of artery; Z79.02 Long term (current) use of antithrombotics/antiplatelets; Z79.82 Long term (current) use of aspirin; Z91.19 Patient's noncompliance with other medical treatment and regimen